=== PATIENT | female | born 1935 | race Caucasian/White ===

== ENCOUNTER → 2020-12-13 12:53 | Outpatient (REF) | payer MEDICARE, SELFPAY ==
--- NOTE | 2020-12-13 13:00 | CA_ITS ---
Transthoracic Echocardiogram Patient (Last, First, Middle): Soledad Padilla, Gender: Female Date of : 1935 Age: 85 Procedure Date: 12/13/2020 Procedure Type: Transthoracic Echocardiogram Location: OP Height: 154.94 cm Weight: 56.7 kg BSA: 1.55 m2 Heart Rate: bpm Manager Corporate Communications: SHIRA Referring MD: Chepe Rust MD Broadcast Supervisor: Chepe Rust MD Symptoms: S/P AVR Study Quality: Fair ECG Rhythm: Atrial Fibrillation Conclusions: - 1. Normal LV systolic function 2. Mild left atrial enlargement 3. Possible mild stenosis of the bioprosthetic aortic valve 4. At least moderate mitral annular calcification with mild mitral regurgitation 5. Normal RV systolic pressure 6. No pericardial effusion Findings Left Ventricle Normal left ventricular size, thickness, and systolic function. The visually estimated ejection fraction is between 60-65%. Diastolic function is indeterminate on the basis of available data. There is mild septal asymmetric hypertrophy. Right Ventricle Normal right ventricular cavity size and systolic function. Atria The left atrium is mildly dilated. Interatrial shunt cannot be excluded. The right atrium is normal in size. Aortic Valve The prosthetic aortic valve appears to be functioning abnormally. The aortic valve was not well visualized. The peak aortic gradient is 28 mmHg.The mean gradient is 15 mmHg. The aortic valve area is 1.29 cm2. There is no aortic valve regurgitation. Increased gradient across the bioprosthetic aortic valve, suggestive of possible mild stenosis. the valve appears to be well seated without abnormal rocking motion Mitral Valve There is moderate anterior and severe posterior mitral leaflet thickening. There is moderate mitral annular calcification. There is mild mitral valve regurgitation. There is no mitral valve stenosis. Pulmonic Valve The pulmonic valve was not well visualized. Tricuspid Valve Likely normal tricuspid valve structure and function. There is mild tricuspid valve regurgitation. The right ventricular systolic pressure is normal. There is no evidence of pulmonary hypertension. Great Vessels All visible segments of the aorta are normal in size. The pulmonary artery was not well visualized. Venous The inferior vena cava was not well visualized. Pericardium/Pleural There is no evidence of pericardial effusion. Prior Study Comparison Changes noted compared to prior study dated: 07/06/2019. patient appears to be in atrial fibrillation on this study. Otherwise no significant changes. Measurements 2D Linear Measurements IVSd: 1.41 0.6-0.9/0.6-1.0 cm LVIDd: 3.85 3.9-5.3/4.2-5.9 cm LVIDd Index: 2.48 2.4-3.2/2.2-3.1 cm/m2 LVIDs: 2.79 2.0-3.6 cm LVPWd: 1.01 0.7-1.1 cm Ao Root: 2.20 2.1-3.5 cm LA Diam: 3.90 2.7-3.8/3.0-4.0 cm LAIDs Index: 2.52 1.5-2.3 cm/m2 LV Mass: 197.00 67-162/88-224 g LV Mass Index: 127.10 43-95/49-115 g/m2 LVOT Diam: 1.90 3.0+(-)1.3 cm 2D Systolic Function EF 4C: 65.40 >55% EF 2C: 41.40 >55% EF BiP: 54.90 >55% Mitral Valve MV Pk E: 1.27 MV Decel Time: 126.00 E'Lateral: 7.94 E'Medial: 5.33 E/E' Med: 23.80 E/E' Lat: 16.00 PHT: 37.00 MVA PHT: 5.95 Decel Sumner: 10.11 Aortic Valve AoV Pk Maverick: 2.64 AoV Mn Maverick: 1.83 AoV VTI: 0.55 AoV Pk Grad: 28.00 Aov Mn Grad: 15.00 RANDEE Cont.VTI: 1.29 LVOT LVOT Pk Maverick: 1.17 LVOT Mn Maverick: 0.78 LVOT VTI: 0.25 LVOT Pk Grad: 5.00 LVOT Mn Grad: 3.00 LVOT Diam: 1.90 LVOT Area: 2.84 Diastolic Function MV Pk E: 1.27 E'Medial: 5.33 E/E' Med: 23.80 E' Laterial: 7.94 E/E' Lat: 16.00 Tricuspid Valve TR Pk Maverick: 2.90 TR Pk Grad: 34.00 RA Press: 3.00 RVSP: 37.00 Great Vessels Aorta Ao Root-2D: 2.20 2.0-3.7 cm Ao Asc: 2.40 2.1-3.4 cm Updated in Other Vendor System with Status of Final Chepe Rust MD electronically signed on 12/13/2020 4:59:53 PM with status of Final
== END ==
LOC: HO.CARD 12:53
PROVIDERS: Visit Provider Internal Medicine Cardiovascular Disease
DX: I10 Essential (primary) hypertension (principal); Z95.2 Presence of prosthetic heart valve
CPT/HCPCS: 93306

== ENCOUNTER → 2020-12-21 14:56 | Outpatient (BNVA) | payer MEDICARE, SELFPAY | PROVIDERS: PCP Internal Medicine; Visit Provider Nurse Practitioner Family | DX: I35.0 Nonrheumatic aortic (valve) stenosis (principal); I48.92 Unspecified atrial flutter; I34.0 Nonrheumatic mitral (valve) insufficiency; I10 Essential (primary) hypertension; E78.5 Hyperlipidemia, unspecified; Z95.2 Presence of prosthetic heart valve | CPT/HCPCS: 93005; 99212 ==

== ENCOUNTER → 2021-01-03 14:54 | Outpatient (REF) | payer MEDICARE, SELFPAY ==
--- NOTE | 2021-01-04 10:30 | ECG_ITS ---
Hook-up date: 2021-01-03 15:14:00 Duration: 39:19:00 Test Indications: AFLUTTER Medications: 43608 QRS complexes 2208 Ventricular ectopics which represent 2 % of total QRS comp. * Supraventricular ectopics which represent % of total QRS comp. * Paced QRS complexs which represent % of total QRS comp. VENTRICULAR ECTOPY 2094 Isolated 9 Bigeminal Cycles 54 Couplets 2 Runs 6 Beats in Runs 3 Beats LONGEST at 80 BPM at 00:41:15 2021-01-04 3 Beats FASTEST at 80 BPM at 00:41:15 2021-01-04 SUPRAVENTRICULAR ECTOPY * Isolated * Couplets * Runs * Beats in Runs * Beats LONGEST at * BPM at :: -- * Beats FASTEST at * BPM at :: -- HEART RATES 47 MIN at 05:11:48 2021-01-04 71 AVG 107 MAX at 12:19:26 2021-01-04 LONGEST RR 2.2080 secs at 20:59:54 2021-01-03 S-T LEVELS Channel 1 - 128 mm at 15:14:00 2021-01-03 - 128 mm at 15:14:00 2021-01-03 Channel 2 - 128 mm at 15:14:00 2021-01-03 - 128 mm at 15:14:00 2021-01-03 Channel 3 - 128 mm at 03:43:31 -- - 128 mm at 03:43:31 Basic rhythm Atrial fibrillation Good rate control in AF Frequent Premature ventricular complexes Patient did not report any symptoms in the diary Referred By: Sandra Maddox Overread By: AMANDA SPRING MD
== END ==
LOC: HO.CARD 14:54
PROVIDERS: PCP Internal Medicine; Visit Provider Nurse Practitioner Family
DX: I48.92 Unspecified atrial flutter (principal)
CPT/HCPCS: 93226

== ENCOUNTER → 2021-01-23 14:38 | Outpatient (BNVA) | payer MEDICARE, SELFPAY | PROVIDERS: PCP Internal Medicine; Referring Provider Internal Medicine; Visit Provider Internal Medicine Cardiovascular Disease | DX: I48.92 Unspecified atrial flutter (principal); Z95.2 Presence of prosthetic heart valve | CPT/HCPCS: 99212 ==

== ENCOUNTER 2021-02-20 10:57 | Outpatient (REF) | payer MEDICARE, SELFPAY ==
[2021-02-20 11:33] LABS: Estimated Average Glucose 126 mg/dL
[2021-02-20 13:00] LABS: Alanine Aminotransferase 29 U/L (0-31); Albumin Level 3.8 g/dL (3.5-5.0); Alkaline Phosphatase 96 U/L (39-117); Aspartate Amino Transferase 25 U/L (5-31); Bilirubin Direct 0.3 mg/dL (0.0-0.5); Bilirubin Total 1.1 mg/dL (0.0-1.0); Cholesterol 201 mg/dL; Glucose Fasting 112 mg/dL (60-99); HDL Cholesterol 53 mg/dL; LDL Cholesterol Calculated 133 mg/dl; Total Protein 6.2 g/dL (6.5-8.0); Triglycerides 78 mg/dL
[2021-02-20 13:29] LABS: Reflex LDLD? No
== END 2021-02-20 10:58 | disposition home or self-care (01) ==
LOC: HO.LNP 10:57
PROVIDERS: Visit Provider Internal Medicine
DX: E78.00 Pure hypercholesterolemia, unspecified (principal); R73.03 Prediabetes
CPT/HCPCS: 80061; 80076; 82947; 83036

== ENCOUNTER 2021-04-20 18:55 | Emergency (ER) | payer MEDICARE, SELFPAY ==
[2021-04-20 19:06] VITALS: BP 167/74; BP 185/79; PULSE 92; PULSE 99; RESP 18; TEMP 36.8; O2SAT 94; O2SAT 96; BMI 35.2
--- NOTE | 2021-04-20 19:20 | ED.FALL ---
HPI - Fall General Chief Complaint: Fall Stated Complaint: fall Time Seen by Provider: 04/20/21 19:12 Source: patient and EMS Mode of arrival: EMS Limitations: no limitations History of Present Illness MD complaint: fall Related Data Home Medications Medication Instructions Recorded Confirmed atorvastatin 40 mg tablet 40 mg PO DAILY 12/21/20 metoprolol tartrate 50 mg tablet 50 mg PO BID 12/21/20 Previous Rx's Medication Instructions Recorded apixaban 2.5 mg tablet (Eliquis) 2.5 mg PO BID #180 tab 01/05/21 Allergies Allergy/AdvReac Type Severity Reaction Status Date / Time acetaminophen Allergy Unknown itching Verified 05/11/20 00:00 [Tylenol-Codeine #3] amlodipine [Norvasc] Allergy Unknown leg Verified 05/11/20 00:00 swelling codeine [Tylenol-Codeine #3] Allergy Unknown itching Verified 05/11/20 00:00 morphine Allergy Unknown hallucinati Verified 05/11/20 00:00 on oxycodone [OXYCODONE] Allergy Unknown AGITATION Unverified 06/01/20 14:41 scallops [SCALLOPS] AdvReac Intermediate NAUSEA & Unverified 06/01/20 14:41 VOMITING PMFSH Past Medical History Attestation statement: The following information was validated with the patient. Medical History Aortic stenosis HLD (hyperlipidemia) HTN (hypertension) Mitral regurgitation Surgical History Hx of aortic valve replacement Hx of cholecystectomy Family History Family History Father No problems noted. Mother CVD (cardiovascular disease) Social History Social History (Updated 04/20/21 @ 19:21 by Abigail Miles DO) Patient Tobacco Use Status: Never used Tobacco Advance Directives: No Advance Directives Information Provided: No Physical Exam Vital Signs: Vital Signs: Last Vital Signs Temp 98.2 F 04/20/21 19:06 Pulse 99 04/20/21 19:06 Resp 18 04/20/21 19:06 BP 185/79 H 04/20/21 19:06 Pulse Ox 94 04/20/21 19:06 Body Mass Index 35.2 Discharge Plan Discharge Prescriptions: No Action Eliquis 2.5 mg tablet 2.5 mg PO BID Qty: 180 RF: 3 metoprolol tartrate 50 mg tablet 50 mg PO BID RF: 0 atorvastatin 40 mg tablet 40 mg PO DAILY RF: 0
--- NOTE | 2021-04-20 19:43 | ED_ITS ---
HPI - Wound/Laceration General Chief Complaint: Fall Stated Complaint: fall Time Seen by Provider: 04/20/21 19:12 Source: patient Mode of arrival: ambulatory Limitations: no limitations History of Present Illness HPI narrative: 86-year-old female presents via EMS with large laceration to the right knee after mechanical fall. Patient was ambulating with her walker and tripped, landed on her right knee. She did not hit her head or lose consciousness, does not report any prodromal events. Patient is on Eliquis and has some significant bleeding at this time. She did not report any other symptoms at this time. Onset (ago): hour(s) (Within the hour of arrival) Extremity Location: right: knee Place: home Patient tetanus UTD: Yes Context: accidental Associated symptoms: pain Related Data Home Medications Medication Instructions Recorded Confirmed atorvastatin 40 mg tablet 40 mg PO DAILY 12/21/20 metoprolol tartrate 50 mg tablet 50 mg PO BID 12/21/20 Previous Rx's Medication Instructions Recorded apixaban 2.5 mg tablet (Eliquis) 2.5 mg PO BID #180 tab 01/05/21 Allergies Allergy/AdvReac Type Severity Reaction Status Date / Time acetaminophen Allergy Unknown itching Verified 05/11/20 00:00 [Tylenol-Codeine #3] amlodipine [Norvasc] Allergy Unknown leg Verified 05/11/20 00:00 swelling codeine [Tylenol-Codeine #3] Allergy Unknown itching Verified 05/11/20 00:00 morphine Allergy Unknown hallucinati Verified 05/11/20 00:00 on oxycodone [OXYCODONE] Allergy Unknown AGITATION Unverified 06/01/20 14:41 scallops [SCALLOPS] AdvReac Intermediate NAUSEA & Unverified 06/01/20 14:41 VOMITING Review of Systems Review of Systems: Constitutional: No Fever, No Chills ENT/Mouth: No Ear Pain, No Hoarseness, No sore throat Eyes: No Eye Pain, No Swelling, No Redness, No Foreign Body Cardiovascular: No Chest Pain, No SOB Respiratory: No Cough, No Dyspnea Gastrointestinal: No Nausea, No Vomiting, No Diarrhea, No abdominal Pain Genitourinary: No Dysuria, No Hematuria Musculoskeletal: positive right knee pain, No Myalgias, No Joint Swelling Skin: Positive right knee laceration No rash Neuro: No Weakness, No Numbness, No Paresthesias, No Loss of Consciousness, No Dizziness, No Headache Psych: No Anxiety/Panic, No Depression Heme/Lymph: no easy bruising, no Lymphadenopathy Endocrine: No Polyuria, No Polydipsia Yes all other systems are reviewed and are negative [facility] Past Medical History Attestation statement: The following information was validated with the patient. Source: old records reviewed Medical History Aortic stenosis HLD (hyperlipidemia) HTN (hypertension) Mitral regurgitation Surgical History Hx of aortic valve replacement Hx of cholecystectomy Family History Family History Father No problems noted. Mother CVD (cardiovascular disease) Social History Social History Patient Tobacco Use Status: Never used Tobacco Advance Directives: No Advance Directives Information Provided: No Physical Exam Vital Signs: Vital Signs: Last Vital Signs Temp 98.2 F 04/20/21 19:06 Pulse 99 04/20/21 19:06 Resp 18 04/20/21 19:06 BP 185/79 H 04/20/21 19:06 Pulse Ox 94 04/20/21 19:06 Body Mass Index 35.2 Appearance: Alert. Oriented X3. No acute distress. Eyes: Pupils equal, round and reactive to light. ENT: Pharynx normal. Neck: Normal inspection. Neck supple. CVS: Normal heart rate and rhythm. Pulses normal. Respiratory: No respiratory distress. Breath sounds normal. Abdomen: Soft and nontender. Skin: 10 cm irregular laceration to the right knee, bruising noted to the right lower extremity. Extremities: No lower extremity edema. Moves all extremities against resistance. Neuro: No motor deficit. No sensory deficit. Cranial nerves 2-12 intact. Course Course Course Narrative: 86-year-old female presents with right knee laceration after mechanical fall. No prodromal events. Patient was evaluated by Dr. Miles and was referred to this CLOSING MACHINE OPERATOR for laceration repair. Prepped and draped in sterile fashion. Irrigated with copious amounts of normal saline. Betadine cleanse. Approximately 60 mL of blood loss. Patient tolerated procedure well. Brisk capillary refill and equal pedal pulses. Approximately 30 minutes status post laceration repair, pressure dressing remains in place, patient continues to maintain brisk capillary refill in equal pedal pulses. Plan is for patient to keep pressure dressing on for the next 48 hours, to return in 3 days for wound evaluation. Patient verbalized understanding of and agrees to plan of care discharge home. MDM - Wound/Laceration Differential Diagnosis Differential diagnosis: Likely laceration Medical Records Attestation: I reviewed the patient's medical records. Procedures Laceration Laceration 1: Site: lower extremity Side (If applicable): right Size (cm): 15 Description: irregular Depth: simple, single layer Local Anesthetic: lidocaine 2% and with epi Amount of anesthesia used (mL): 20 Pre-repair: wound explored, irrigated extensively and deep structures intact Skin layer closed with: nylon Size (cm): 5-0 Number of sutures: 32 Technique: simple, interrupted Discharge Plan Discharge Clinical Impression: Laceration Patient Disposition: Home, Self-Care Instructions: Care For Your Stitches (ED), Laceration (ED) Additional Instructions: You were evaluated for a large laceration to the right knee. We placed 32 sutures. Please keep the pressure dressing in place for the next 48 hours. Do not under any circumstances remove this dressing. This is a pressure dressing, you are bleeding under this large wound. You are on Eliquis which is a blood thinner. Please return for evaluation in 3 or 4 days. Sutures must be removed in approximately 10-14 days. If you notice any signs or symptoms indicating infection please return sooner. Thank you for choosing this emergency department for evaluation. Please follow-up with primary care physician as needed. Return to the emergency department for any new, concerning, or worsening symptoms. Prescriptions: No Action Eliquis 2.5 mg tablet 2.5 mg PO BID Qty: 180 RF: 3 metoprolol tartrate 50 mg tablet 50 mg PO BID RF: 0 atorvastatin 40 mg tablet 40 mg PO DAILY RF: 0 Interventions: ED Discharge Assessment Last Done: 04/20/21 21:34 Discharge Date/Time: 04/20/21 21:38
[2021-04-20] MEDS: Lidocaine HCl 2% PF/Epi 1:200 20 ML VIAL INFILTRATI (19:52)
--- NOTE | 2021-04-20 20:59 | PC.NURSE ---
PT LAC TO RIGHT KNEE CLEANED AND FLUSHED PER MOISES HARLEY. [address] AND PRESSURE DRESSING APPLIED.
--- NOTE | 2021-04-20 21:32 | PC.NURSE ---
PT GRAND DAUGHTER WILL BE TAKING CARE OF HER DRESSING CHANGES IN THE [facility].
== END 2021-04-20 21:38 | disposition home or self-care (01) ==
PROVIDERS: Emergency Provider Emergency Medicine; PCP Internal Medicine
DX: S81.011A Laceration without foreign body, right knee, initial encounter (principal); W01.0XXA Fall on same level from slipping, tripping and stumbling without subsequent striking against object, initial encounter; I10 Essential (primary) hypertension; E78.5 Hyperlipidemia, unspecified; Y93.9 Activity, unspecified; Y92.9 Unspecified place or not applicable; Y99.9 Unspecified external cause status; Z79.01 Long term (current) use of anticoagulants; Z95.2 Presence of prosthetic heart valve
CPT/HCPCS: 12035; 99283; 99284

== ENCOUNTER → 2021-05-08 13:12 | Outpatient (BNVA) | payer MEDICARE, SELFPAY | PROVIDERS: PCP Internal Medicine; Referring Provider Internal Medicine; Visit Provider Surgery | DX: S81.011A Laceration without foreign body, right knee, initial encounter (principal) | CPT/HCPCS: 99202 ==

== ENCOUNTER → 2021-07-31 13:38 | Outpatient (BNVA) | payer MEDICARE, SELFPAY | PROVIDERS: PCP Internal Medicine; Referring Provider Internal Medicine; Visit Provider Internal Medicine Cardiovascular Disease | DX: G45.9 Transient cerebral ischemic attack, unspecified (principal); I48.92 Unspecified atrial flutter; I08.0 Rheumatic disorders of both mitral and aortic valves; I10 Essential (primary) hypertension; E78.5 Hyperlipidemia, unspecified; R60.0 Localized edema; Z95.2 Presence of prosthetic heart valve; Z90.49 Acquired absence of other specified parts of digestive tract; Z88.8 Allergy status to other drugs, medicaments and biological substances; Z88.6 Allergy status to analgesic agent; Z91.013 Allergy to seafood; Z79.899 Other long term (current) drug therapy | CPT/HCPCS: 99212 ==

== ENCOUNTER 2021-08-05 09:59 | Emergency (ER) | payer MEDICARE, SELFPAY ==
--- NOTE | ~2021-08-05 | CT_ITS ---
EXAMINATION: HEAD CT WITHOUT CONTRAST CERVICAL SPINE CT WITHOUT CONTRAST CLINICAL INFORMATION: Fall, on eliquis COMPARISON: CT head 06/18/2018 TECHNIQUE: Contiguous axial imaging of the head was performed without the administration of IV contrast. Axial multidetector volumetric images were also performed through the cervical spine without contrast. Multiplanar reconstructed images in coronal and sagittal orientations were submitted. DOSE: 868 mGy-cm FINDINGS: HEAD: There is no evidence of acute intracranial hemorrhage or edematous territorial infarction. No abnormal mass-effect or midline shift. No extra-axial fluid collections. Sanchez to white matter differentiation is well preserved. Cerebral volume loss with sulcal and ventricular prominence. Moderate to severe deep white matter hypodensities more commonly seen with chronic microangiopathic ischemic changes. No acute fracture The sinuses and mastoid air cells are clear. CERVICAL SPINE: The craniocervical and atlantoaxial articulations are maintained. Mild anterolisthesis of C4 on C5. No acute fracture is seen. Cervical spondylosis. This includes severe C5-C6, C6-C7 disc degeneration. Multilevel facet degeneration. No significant paravertebral soft tissue swelling. No adenopathy. Mild biapical pleural parenchymal scarring. CT/CT cervical spine wo con IMPRESSION: 1. No CT evidence of acute intracranial hemorrhage or territorial infarction. Chronic changes as described above. 2. No CT evidence of acute fracture in the cervical spine. 3. Cervical spondylosis, described above.
--- NOTE | ~2021-08-05 | CT_ITS ---
EXAMINATION: HEAD CT WITHOUT CONTRAST CERVICAL SPINE CT WITHOUT CONTRAST CLINICAL INFORMATION: Fall, on eliquis COMPARISON: CT head 06/18/2018 TECHNIQUE: Contiguous axial imaging of the head was performed without the administration of IV contrast. Axial multidetector volumetric images were also performed through the cervical spine without contrast. Multiplanar reconstructed images in coronal and sagittal orientations were submitted. DOSE: 868 mGy-cm FINDINGS: HEAD: There is no evidence of acute intracranial hemorrhage or edematous territorial infarction. No abnormal mass-effect or midline shift. No extra-axial fluid collections. Sanchez to white matter differentiation is well preserved. Cerebral volume loss with sulcal and ventricular prominence. Moderate to severe deep white matter hypodensities more commonly seen with chronic microangiopathic ischemic changes. No acute fracture The sinuses and mastoid air cells are clear. CERVICAL SPINE: The craniocervical and atlantoaxial articulations are maintained. Mild anterolisthesis of C4 on C5. No acute fracture is seen. Cervical spondylosis. This includes severe C5-C6, C6-C7 disc degeneration. Multilevel facet degeneration. No significant paravertebral soft tissue swelling. No adenopathy. Mild biapical pleural parenchymal scarring. CT/CT head/brain wo con IMPRESSION: 1. No CT evidence of acute intracranial hemorrhage or territorial infarction. Chronic changes as described above. 2. No CT evidence of acute fracture in the cervical spine. 3. Cervical spondylosis, described above.
[2021-08-05 10:13] VITALS: BP 166/64; PULSE 74; RESP 19; TEMP 36.6; O2SAT 98; BMI 28.7
--- NOTE | 2021-08-05 11:47 | ED.FALL ---
HPI - Fall General Chief Complaint: Fall Stated Complaint: fall - rt arm lac Time Seen by Provider: 08/05/21 11:15 Source: patient and family Mode of arrival: ambulatory Limitations: no limitations History of Present Illness HPI Narrative: 86-year-old female with history of aortic stenosis status post bovine aortic valve replacement on Eliquis, atrial flutter, HTN, HLD, multiple falls in the past who presents to the ER after she tripped and fell on a rocking chair in her [place] [address] and landed against a piece of furniture causing a significant skin tear to her right forearm. She states when the injury occurred she had a large amount of bleeding; direct pressure was applied with good effect. she did not hit her head or lose consciousness. She states she simply tripped over the chair, was not dizzy, lightheaded or having any chest pain prior to falling. She reports several falls in the past and required wound repair to her bilateral knees. She denies any headache or neck pain. She states her last tetanus shot was 6 years ago. MD complaint: fall Onset (ago): minute(s) Fall from: standing Fall witnessed: no Place fall occurred: home Loss of consciousness: none Prolonged down time: no Symptoms prior to fall: none Context: tripped/slipped Location of injury - extremities: right: elbow and forearm Severity: moderate Severity scale (1-10): 5 Quality: aching Associated symptoms (after fall): denies Related Data Home Medications Medication Instructions Recorded Confirmed metoprolol tartrate 50 mg tablet 50 mg PO BID 12/21/20 07/31/21 hydrochlorothiazide 12.5 mg capsule 12.5 mg PO DAILY 07/31/21 07/31/21 Previous Rx's Medication Instructions Recorded apixaban 2.5 mg tablet (Eliquis) 2.5 mg PO BID #180 tab 01/05/21 aspirin 81 mg tablet,delayed 81 mg PO DAILY #30 tab 07/31/21 release (Adult Aspirin Regimen) Allergies Allergy/AdvReac Type Severity Reaction Status Date / Time acetaminophen Allergy Unknown itching Verified 05/08/21 13:23 [Tylenol-Codeine #3] amlodipine [Norvasc] Allergy Unknown leg Verified 05/08/21 13:23 swelling codeine [Tylenol-Codeine #3] Allergy Unknown itching Verified 05/08/21 13:23 morphine Allergy Unknown hallucinati Verified 05/08/21 13:23 on oxycodone [OXYCODONE] Allergy Unknown AGITATION Unverified 05/08/21 13:23 scallops [SCALLOPS] AdvReac Intermediate NAUSEA & Unverified 05/08/21 13:23 VOMITING Review of Systems Review of Systems: Constitutional: No Fever, No Chills ENT/Mouth: No sore throat, No Rhinorrhea Eyes: No vision changes Cardiovascular: No Chest Pain, No SOB Respiratory: No Cough, No Sputum Gastrointestinal: No Nausea, No Vomiting, No Diarrhea, No abdominal Pain Musculoskeletal: No joint pain, No Myalgias Skin: + Skin Lesions, No rash Neuro: No Weakness, No Numbness, No Dizziness, No Headache Psych: No Anxiety/Panic, No Depression Heme/Lymph: + Bruising, No Lymphadenopathy Endocrine: No Polyuria, No Polydipsia PMFSH Past Medical History Medical History Aortic stenosis HLD (hyperlipidemia) HTN (hypertension) Mitral regurgitation Surgical History Hx of aortic valve replacement Hx of cholecystectomy Family History Family History Father No problems noted. Mother CVD (cardiovascular disease) Social History Social History Patient Tobacco Use Status: Never used Tobacco Advance Directives: No Physical Exam Vital Signs: Vital Signs: Last Vital Signs Temp 98 F 08/05/21 10:13 Pulse 74 08/05/21 10:13 Resp 19 08/05/21 10:13 BP 166/64 H 08/05/21 10:13 Pulse Ox 98 08/05/21 10:13 Body Mass Index 28.7 Appearance: Alert. Oriented X3. No acute distress. Eyes: Pupils equal, round and reactive to light. ENT: Pharynx normal. Neck: Normal inspection. Neck supple. no midline tenderness. Normal range of motion. CVS: Normal heart rate and rhythm. Pulses normal. Respiratory: No respiratory distress. Breath sounds normal. Abdomen: Soft and nontender. +BS x4 Skin: Skin warm and dry. Normal skin color. Normal skin turgor. No rashes. Extremities: Right forearm and elbow on the extensor surface with a large 8 cm skin tear without any active bleeding. There is an avulsion with missing skin centrally. Overlying the elbow there is a crescent shaped skin tear as well. She has normal range of motion of the elbow, no point tenderness. There is surrounding ecchymosis of the skin tears, and elbow. Compartments are soft and compressible. neurovascularly intact distally. Neuro: Oriented X 3. No motor deficit. No sensory deficit. Course Course Course Narrative: 86-year-old female with a history of aortic stenosis s/p bovine AVR, a flutter on Eliquis, HTN, HLD, multiple falls presents to the ER from home with a mechanical fall, and 2 skin tears to the right forearm and elbow. No active bleeding. Low clinical suspicion for an acute fracture given her full range of motion and non tenderness on exam. She has some ecchymosis to her forearm already forming due to being on anticoagulation. Her wounds were cleansed with normal saline and Steri-Strips were used to approximate the wound margins. The large 1 on the forearm required some resection of irregular avulsion skin. Tdap given. Will get CT of the head and neck given she is on anticoagulation. She has a nonfocal neuro exam with low suspicion for ICH. Reevaluation(s) Reevaluation #1: CT head and neck without traumatic injury. Wound care discussed with patient and son at the bedside. Stable for discharge home. Procedures Laceration Laceration 1: Site: upper extremity Side (If applicable): right Size (cm): 8 Description: irregular and clean Depth: simple, single layer Pre-repair: wound explored, irrigated extensively, deep structures intact and wound margins revised Skin layer closed with: other (steri strips) Laceration 2: Site: upper extremity Side (If applicable): right Size (cm): 4 Description: irregular and clean Depth: simple, single layer Pre-repair: wound explored, irrigated extensively and deep structures intact Skin layer closed with: other (steri strips) Critical Care Time Critical Care Time Critical Care Time: No Discharge Plan Discharge Clinical Impression: Skin tear of right upper extremity Patient Disposition: Home, Self-Care Instructions: Skin Tear (ED) Additional Instructions: The CT scan of your head was normal. Steri-Strips were used to reapproximate the wound margins of the 2 skin tears on your right arm. These will fall off on their own. Do not get wet for 24 hours, after that you can gently wash with soap and water then pat dry. Recommend bacitracin 1-2 times per day keep clean and covered. Allow to open to air for a few hours per day. Monitor for signs of infection including increased redness, swelling, drainage of pus or worsening pain. Follow up with your doctor this week. If you develop new or worsening symptoms call 911 or come back to the ER for further evaluation. Prescriptions: No Action Eliquis 2.5 mg tablet 2.5 mg PO BID Qty: 180 RF: 3 metoprolol tartrate 50 mg tablet 50 mg PO BID RF: 0 hydrochlorothiazide 12.5 mg capsule 12.5 mg PO DAILY RF: 0 aspirin [Adult Aspirin Regimen] 81 mg tablet,delayed release (DR/EC) 81 mg PO DAILY Qty: 30 RF: 11 Referrals: Gray Spears MD [Primary Care Provider] - 5 days ( Follow-up mechanical fall and skin tears)
[2021-08-05] MEDS: Acetaminophen 325 MG TABLET 650 MG PO (11:54)
[2021-08-05] MEDS: Diphth,Pertus(ACell),Tet Adult 0.5 ML SYRINGE IM (11:55)
== END 2021-08-05 13:26 | disposition home or self-care (01) ==
PROVIDERS: Emergency Provider Emergency Medicine Emergency Medical Services; PCP Internal Medicine
DX: S41.111A Laceration without foreign body of right upper arm, initial encounter (principal); S50.811A Abrasion of right forearm, initial encounter; M79.631 Pain in right forearm; M54.2 Cervicalgia; G44.309 Post-traumatic headache, unspecified, not intractable; I10 Essential (primary) hypertension; Y29.XXXA Contact with blunt object, undetermined intent, initial encounter; Y93.9 Activity, unspecified; Y92.9 Unspecified place or not applicable; Y99.9 Unspecified external cause status; Z79.899 Other long term (current) drug therapy; Z79.01 Long term (current) use of anticoagulants
CPT/HCPCS: 12004; 70450; 72125; 90471; 90715; 99283; 99284

== ENCOUNTER 2021-08-07 15:40 | Outpatient (REF) | payer MEDICARE, SELFPAY ==
[2021-08-07 15:50] LABS: Appearance Urine CLEAR; Color Urine YELLOW; Glucose Urine UA NEG (NEG); Leukocyte Esterase Urine NEG (NEG); Nitrite Urine NEG (NEG); Urine Blood NEG (NEG); Urine Ketones NEG (NEG); Urine Protein NEG (NEG-TRACE)
== END 2021-08-07 15:41 | disposition home or self-care (01) ==
LOC: HO.LNP 15:40
PROVIDERS: Visit Provider Internal Medicine
DX: N39.0 Urinary tract infection, site not specified (principal)
CPT/HCPCS: 81003; 87086

== ENCOUNTER 2021-08-09 18:13 | Emergency (ER) | payer MEDICARE, SELFPAY ==
[2021-08-09 18:16] VITALS: BP 158/59; PULSE 73; RESP 18; TEMP 36.4; O2SAT 100; BMI 24.5
--- NOTE | 2021-08-09 18:50 | ED.WOUNDLAC ---
HPI - Wound/Laceration General Chief Complaint: Wound/Laceration Stated Complaint: lac Time Seen by Provider: 08/09/21 18:49 Source: patient Mode of arrival: ambulatory Limitations: no limitations History of Present Illness HPI narrative: 86-year-old female with a history of aortic stenosis status post aortic bovine valve repair on Eliquis, HTN, HLD, atrial flutter who presents to the ER with skin tear to her left anterior guzman. She was leaving her family's Thanksgiving dinner in a wheelchair being wheeled down the path outside with a stick got caught in the wheel of her wheelchair and came up and cut her anterior left guzman. She was wearing compresses in her skin was exposed, there was immediate bleeding after the wound was sustained. Patient's granddaughter is an EMT and was able to Steri-Strips the wound closed with adequate control of bleeding. Of note patient was recently seen here less than a week ago for skin tear to the right arm after she fell. She also has history of multiple falls requiring complex wound repair and suturing to her bilateral knees. Onset (ago): hour(s) (1.5) Extremity Location: left: lower leg Body four view annotation: 1. Anterior skin tear 2. Anterior skin tear Place: home Patient tetanus UTD: Yes Context: accidental Associated symptoms: pain Treatments prior to arrival: bandage and other (Steri-Strips) Related Data Home Medications Medication Instructions Recorded Confirmed metoprolol tartrate 50 mg tablet 50 mg PO BID 12/21/20 07/31/21 hydrochlorothiazide 12.5 mg capsule 12.5 mg PO DAILY 07/31/21 07/31/21 Previous Rx's Medication Instructions Recorded apixaban 2.5 mg tablet (Eliquis) 2.5 mg PO BID #180 tab 01/05/21 aspirin 81 mg tablet,delayed 81 mg PO DAILY #30 tab 07/31/21 release (Adult Aspirin Regimen) Allergies Allergy/AdvReac Type Severity Reaction Status Date / Time amlodipine [Norvasc] Allergy Unknown leg Verified 08/09/21 18:16 swelling codeine [Tylenol-Codeine #3] Allergy Unknown itching Verified 08/09/21 18:16 morphine Allergy Unknown hallucinati Unverified 08/09/21 18:16 on oxycodone [OXYCODONE] Allergy Unknown AGITATION Verified 08/09/21 18:16 scallops [SCALLOPS] AdvReac Intermediate NAUSEA & Verified 08/09/21 18:16 VOMITING Review of Systems Review of Systems: Constitutional: No Fever, No Chills Cardiovascular: No Chest Pain, No SOB Gastrointestinal: No Nausea, No Vomiting, No Diarrhea, No abdominal Pain Musculoskeletal: No joint pain, No Myalgias Skin: + Skin Lesions, No rash Neuro: No Weakness, No Numbness, No Dizziness, No Headache Psych: + Anxiety/Panic, No Depression Heme/Lymph: + Bruising, No Lymphadenopathy PMFSH Past Medical History Medical History (Updated 08/09/21 @ 19:49 by ANA Yu) Aortic stenosis HLD (hyperlipidemia) HTN (hypertension) Melanoma Mitral regurgitation Surgical History Hx of aortic valve replacement Hx of cholecystectomy Family History Family History Father No problems noted. Mother CVD (cardiovascular disease) Social History Social History Patient Tobacco Use Status: Never used Tobacco Advance Directives: No Advance Directives Information Provided: Yes Physical Exam Vital Signs: Vital Signs: Last Vital Signs Temp 97.6 F 08/09/21 18:16 Pulse 73 08/09/21 18:16 Resp 18 08/09/21 18:16 BP 158/59 H 08/09/21 18:16 Pulse Ox 100 08/09/21 18:16 Body Mass Index 24.5 Appearance: Alert. Oriented X3. No acute distress. HEENT: normal inspection CVS: Normal heart rate and rhythm. Pulses normal. Respiratory: No respiratory distress. Skin: Skin warm and dry. Normal skin color. Normal skin turgor. No rashes. Extremities: Right upper extremity with Steri-Strips in place from prior skin tears, wound is healing appropriately. Some dried blood is present beneath the Steri-Strips and surrounding ecchymosis is present as well. She has full range of motion of the elbow. No active bleeding. Her right lower anterior guzman has a v-shaped 3 cm skin tear, no active bleeding, mild ecchymosis surrounding. Her left anterior guzman with a complex L shape, irregular skin tear with active oozing from the superior portion. Many Steri-Strips are in place with adequate approximation of the wound margins. Neurovascularly intact distally. Neuro: Oriented X 3. No motor deficit. No sensory deficit. Course Course Course Narrative: 86-year-old female on Eliquis presenting with a bleeding skin tear to her left guzman. She also has a small skin tear to the right guzman unknown etiology who was. Pressure dressing was applied to the left anterior guzman with adequate hemostasis. Additional Steri-Strips were used for wound closure. Patient tolerated procedure well. Patient and her daughter were counseled on wound care moving forward. They have nurse at the assisted living that is going to change the dressing tomorrow. Daughter is going to advocate for wound care follow-up next week. At this time she is stable for discharge home with wound care and close outpatient follow-up. Procedures Laceration Laceration 1: Side (If applicable): right Size (cm): 3 Description: linear (V-shaped) Depth: simple, single layer Pre-repair: wound explored, irrigated extensively and deep structures intact Skin layer closed with: other (Steri-Strips x3) Laceration 2: Site: lower extremity Side (If applicable): left Size (cm): 7 Description: irregular and clean Depth: simple, single layer Pre-repair: wound explored, irrigated extensively and deep structures intact Skin layer closed with: other (steri strips) Critical Care Time Critical Care Time Critical Care Time: No Discharge Plan Discharge Clinical Impression: Skin tear of left lower leg without complication Qualifiers: Encounter type: initial encounter Qualified Code(s): S81.812A - Laceration without foreign body, left lower leg, initial encounter Patient Disposition: Home, Self-Care Instructions: Skin Tear (ED) Additional Instructions: Steri-Strips were used to help close your wound today. Keep the dressing that was applied to your wound in place until tomorrow. Steri-Strips will fall off on their own, once they start to peel away just trim them, do not peel them off. Keep the wound clean and covered, recommend bulky dressings to help protect them. Follow-up with your doctor early next week. If you notice any signs or symptoms of infection including increased pain, redness, swelling, drainage of pus call your doctor or come back to the emergency room for further evaluation. Prescriptions: No Action Eliquis 2.5 mg tablet 2.5 mg PO BID Qty: 180 RF: 3 metoprolol tartrate 50 mg tablet 50 mg PO BID RF: 0 hydrochlorothiazide 12.5 mg capsule 12.5 mg PO DAILY RF: 0 aspirin [Adult Aspirin Regimen] 81 mg tablet,delayed release (DR/EC) 81 mg PO DAILY Qty: 30 RF: 11
--- NOTE | 2021-08-09 19:37 | PC.NURSE ---
PT IS NOT ALLERGIC TO TYLENOL TAKES IT AT HOME EVERY DAY ONLY TYLENOL WITH CODEINE.
[2021-08-09] MEDS: Acetaminophen 325 MG TABLET 650 MG PO (19:49)
== END 2021-08-09 20:50 | disposition home or self-care (01) ==
PROVIDERS: Emergency Provider Student in an Organized Health Care Education/Training Program; PCP Internal Medicine
DX: S81.812A Laceration without foreign body, left lower leg, initial encounter (principal); M79.605 Pain in left leg; M79.604 Pain in right leg; W26.9XXA Contact with unspecified sharp object(s), initial encounter; Y93.9 Activity, unspecified; Y92.9 Unspecified place or not applicable; Y99.9 Unspecified external cause status; Z79.899 Other long term (current) drug therapy
CPT/HCPCS: 12004; 99283; 99284

== ENCOUNTER 2021-10-26 12:54 | Outpatient (RCR) | payer MEDICARE, SELFPAY | END 2021-10-29 15:34 | disposition home or self-care (01) | LOC: HO.WCC 12:54 | PROVIDERS: PCP Internal Medicine; Visit Provider Physician Assistant | DX: Z09 Encounter for follow-up examination after completed treatment for conditions other than malignant neoplasm (principal); I87.301 Chronic venous hypertension (idiopathic) without complications of right lower extremity; Z87.891 Personal history of nicotine dependence; Z95.2 Presence of prosthetic heart valve; Z86.73 Personal history of transient ischemic attack (TIA), and cerebral infarction without residual deficits; Z87.2 Personal history of diseases of the skin and subcutaneous tissue | CPT/HCPCS: 99213 ==

== ENCOUNTER 2022-03-31 18:27 | Inpatient (IN) | payer MEDICARE, SELFPAY ==
--- NOTE | ~2022-03-31 | CT_ITS ---
EXAMINATION: CT ANGIOGRAM OF THE CHEST WITH AND WITHOUT CONTRAST (CT PULMONARY ANGIOGRAM FOR PE) CLINICAL INFORMATION: Fall, positive d-dimer. COMPARISON: CT chest 03/31/2022. TECHNIQUE: Prior to contrast administration, noncontrast localization images were obtained. Subsequently, multidetector volumetric imaging was performed from the thoracic inlet to below the diaphragms following the administration of 80 mL Omnipaque 350 intravenous contrast. No contrast reaction reported Sagittal, coronal, and MIP oblique sagittal reformatted images were obtained on the CT workstation, uploaded to PACS, and reviewed. This CT examination was performed using dose optimization techniques as appropriate, variously including the following: *Automated exposure control *Adjustment of mA and/or kV according to patient size (this includes techniques or standardized protocols for targeted exams where dose is matched to indication/reason for exam; i.e. extremities or head) *Use of iterative reconstruction technique Total exam dose-length product 208 mGy-cm FINDINGS: QUALITY OF STUDY/CONTRAST BOLUS: Satisfactory. PULMONARY ARTERIES: No central or segmental pulmonary emboli. THORACIC AORTA: No aneurysm or dissection. Extensive atherosclerotic disease. LUNG: No focal consolidation or mass. Redemonstration of background of mild emphysematous changes and diffuse bronchial wall thickening. Subpleural thickening and peripheral reticulation in the lower lobes, stable. Scattered subcentimeter pulmonary nodules are again noted. For example, a 0.5 cm subpleural right middle lobe nodule (6:292), and a 0.4 cm subpleural right upper lobe nodule (6:150). Calcified granulomas are again noted. The central airways are patent. PLEURA: No pleural effusion or pneumothorax. MEDIASTINUM: Normal heart size. Coronary calcifications. Sternal wires. No pericardial effusion. No hilar or mediastinal lymphadenopathy. No evidence of septal bowing or right heart strain. Redemonstration of an approximately 1.5 cm exophytic nodule from the lower pole of the left thyroid. CHEST WALL/AXILLA: No axillary or internal mammary lymphadenopathy. OSSEOUS STRUCTURES: Unchanged compression deformity at T12 with similar degree of retropulsion into the spinal canal. UPPER ABDOMEN: Hiatal hernia. Partially imaged left parapelvic renal cysts. No reflux of contrast into the hepatic veins to suggest elevated right heart pressures. CT/CT angio chest PE protocol IMPRESSION: 1. No evidence of pulmonary embolism nor increased right-sided heart pressures. 2. Scattered subcentimeter pulmonary nodules are redemonstrated. Assuming patient has no history of malignancy, recommend follow-up per Fleischner Society recommendations. According to the UPDATED 2017 Fleischner Society recommendations, the advised followup imaging for solid nodules < 6 mm is: LOW RISK PATIENT: No routine follow up. HIGH RISK PATIENT: Optional CT at 12 months. 3. Again noted exophytic thyroid nodule, consider thyroid ultrasound for further evaluation. 4. Stable compression deformity at T12 with similar degree of retropulsion into the anterior spinal canal. 5. Again noted hiatal hernia. VTE: negative
--- NOTE | ~2022-03-31 | CT_ITS ---
EXAMINATION: CT CHEST, ABDOMEN AND PELVIS WITHOUT IV CONTRAST CLINICAL INFORMATION: Left upper quadrant pain. Fall left anterior chest wall pain COMPARISON: CT abdomen pelvis 03/28/2020 TECHNIQUE: Multidetector volumetric imaging was performed from the thoracic inlet through the pubic symphysis following the uneventful administration of: Oral contrast: No Intravenous contrast: None. Sagittal and coronal reformatted images were obtained on the technologist workstation. This CT examination was performed using dose optimization techniques as appropriate, variously including the following: *Automated exposure control *Adjustment of mA and/or kV according to patient size (this includes techniques or standardized protocols for targeted exams where dose is matched to indication/reason for exam; i.e. extremities or head) *Use of iterative reconstruction technique DLP [id number] FINDINGS: CHEST: LUNG: Mild bronchial wall thickening. No focal consolidation or mass. MEDIASTINUM: Sternal wires. Healed sternotomy. No hilar or mediastinal lymphadenopathy. There is a 1.8 cm nodule exophytic from the lower pole of the left lobe of the thyroid extending into the superior mediastinum. Borderline cardiomegaly. Aortic valve and coronary artery calcifications. PLEURA: No significant effusion. No pleural mass or thickening. CHEST WALL/AXILLA: No bone reconstructions provided. ABDOMEN/PELVIS: The lack of intravenous contrast limits evaluation of the solid visceral organs including the liver, spleen, pancreas, and kidneys. LIVER, GALLBLADDER, AND BILIARY TREE: Limited non-contrast evaluation is normal. No gross focal hepatic lesion. Normal liver size and contour. No gross biliary ductal dilation. Gallbladder not seen, likely surgically absent rather than collapsed. Prominence of the common bile duct, unchanged from prior. PANCREAS: Limited non-contrast evaluation is normal. No nathaly-pancreatic fluid. SPLEEN: Limited non-contrast evaluation is normal. ADRENAL GLANDS: Normal; no adrenal mass. KIDNEYS AND URETERS: Left renal parapelvic cysts. No hydronephrosis, calculi, or solid mass. GASTROINTESTINAL TRACT: Moderate hiatal hernia. Small bowel nondilated. Scattered colonic diverticulosis. No evidence of colitis or diverticulitis. ABDOMINAL WALL: No hernia seen. LYMPH NODES: No pathologically enlarged lymph nodes in the abdomen or pelvis. VASCULAR: Circumferential calcified atherosclerotic changes of the normal caliber abdominal aorta. BLADDER: Unremarkable. PELVIC VISCERA: Pessary in place. Calcified fundal leiomyoma. No adnexal mass. OSSEOUS STRUCTURES: Prior ORIF of the right hip. Healed right superior and inferior pubic ramus fractures. No acute fracture. New since the prior study 03/28/2020 there is superior endplate compression deformity of T12. CT/CT abdomen pelvis wo con IMPRESSION: There is superior endplate compression deformity of T12 with slight 2 mm retropulsion of the posterior wall into the ventral CSF space. The finding is new since the prior study 03/28/2020 but not necessarily acute. Recommend correlation with symptoms of back pain. Limited by lack of IV contrast, no evidence of solid visceral organ injury in the chest, abdomen, or pelvis.
--- NOTE | ~2022-03-31 | CT_ITS ---
EXAMINATION: CT OF THE HEAD AND CERVICAL SPINE WITHOUT CONTRAST CLINICAL INFORMATION: Fall. On Eliquis. COMPARISON: 08/05/2021 TECHNIQUE: Contiguous axial imaging was performed from the vertex to the thoracic inlet, through the head and cervical spine, without intravenous administration of contrast. Coronal and sagittal reformatted images through the cervical spine were obtained on the technologists workstation. Total exam dose-length product: 654 mGy-cm This CT examination was performed using dose optimization techniques as appropriate, variously including the following: *Automated exposure control *Adjustment of mA and/or kV according to patient size (this includes techniques or standardized protocols for targeted exams where dose is matched to indication/reason for exam; i.e. extremities or head) *Use of iterative reconstruction technique FINDINGS: Head: No acute intracranial hemorrhage. No extra-axial fluid collection. Sanchez-white matter differentiation is preserved without evidence of acute large vessel territory ischemia. Symmetric, concordant ventricles and sulci; no hydrocephalus. No mass effect or midline shift. Again seen is patchy periventricular and subcortical white matter hypodensity consistent with chronic microvascular white matter ischemic changes, similar in distribution to the prior study. Chronic lacunar infarcts again seen in the left basal ganglia and thalamus. The osseous structures and soft tissues are normal. No acute sinusitis. Cervical spine: Normal pre-vertebral soft tissues. No fracture seen. Subtle grade 1 anterolisthesis C4 on C5. Multilevel degenerative changes with degenerative disc disease most notable at C5-C6 and C6-C7. 1.7 cm nodule exophytic from the lower pole the left lobe of the thyroid again seen. Lung apices are clear. Partially imaged sternal wire. No cervical lymphadenopathy, mass, or fluid collection. CT/CT cervical spine wo con IMPRESSION: No acute intracranial pathology. Multilevel degenerative changes of the cervical spine but no acute osseous abnormality of the cervical spine. There is a 1.7 cm heterogeneous nodule exophytic from the lower pole of the left lobe of the thyroid. Consider thyroid ultrasound for further evaluation.
--- NOTE | 2022-03-31 18:33 | ECG_ITS ---
Test Reason : CHEST PAIN Blood Pressure : / mmHG Vent. Rate : 074 BPM Atrial Rate : 074 BPM P-R Int : 212 ms QRS Dur : 112 ms QT Int : 426 ms P-R-T Axes : 042 -32 068 degrees QTc Int : 472 ms Sinus rhythm with 1st degree A-V block Left axis deviation Minimal voltage criteria for LVH, may be normal variant ( Binu product ) Cannot rule out Anterior infarct , age undetermined Abnormal ECG When compared with ECG of 18-JUN-2018 13:32, DE interval has increased ST no longer depressed in Anterior leads Nonspecific T wave abnormality no longer evident in Anterior leads Nonspecific T wave abnormality now evident in Lateral leads Referred By: Natalia Glaser Electronically Signed By:Virgilio Jc
--- NOTE | 2022-03-31 18:41 | ED_ITS ---
HPI - Chest Pain General Chief Complaint: Fall Stated Complaint: cp Time Seen by Provider: 03/31/22 18:32 Source: patient and EMS Mode of arrival: EMS Limitations: no limitations History of Present Illness HPI narrative: A 7-year-old female past medical history significant for atrial flutter currently on Eliquis, aortic stenosis, mitral regurg, hyperlipidemia, hypertension presenting to the emergency department with complaints of chest pain that started at around 18:00 after she had dinner she tells me she went to stand and started experiencing substernal chest pain, nonradiating, described as sharp. She tells me at this time it has subsided for the most part but at times it hurts when she takes a deep breath. She also reports that earlier today she sustained a fall, she tells me she did not hit her head, she tells me that at the [facility] they wrapped her left wrist because she had a skin tear. Patient tells me that she did not sustain any injuries from the fall. She denies headache, vision changes, nausea, vomiting, abdominal pain, shortness of breath, leg swelling or leg pain. Patient alert and oriented x4 unable to give me a good history. Related Data Home Medications Medication Instructions Recorded Confirmed metoprolol tartrate 50 mg tablet 50 mg PO BID 12/21/20 03/31/22 hydrochlorothiazide 12.5 mg capsule 12.5 mg PO DAILY 07/31/21 07/31/21 apixaban 2.5 mg tablet (Eliquis) 1 tab PO BID 03/31/22 03/31/22 carbidopa 25 mg-levodopa 100 mg tab PO 03/31/22 tablet furosemide 20 mg tablet 1 tab PO DAILY 03/31/22 03/31/22 Previous Rx's Medication Instructions Recorded aspirin 81 mg tablet,delayed 81 mg PO DAILY #30 tabs 07/31/21 release (Adult Aspirin Regimen) apixaban 2.5 mg tablet (Eliquis) 2.5 mg PO BID #180 tabs 01/04/22 Allergies Allergy/AdvReac Type Severity Reaction Status Date / Time amlodipine [Norvasc] Allergy Unknown leg Verified 08/09/21 18:16 swelling codeine [Tylenol-Codeine #3] Allergy Unknown itching Verified 08/09/21 18:16 morphine Allergy Unknown hallucinati Unverified 08/09/21 18:16 on oxycodone [OXYCODONE] Allergy Unknown AGITATION Verified 08/09/21 18:16 scallops [SCALLOPS] AdvReac Intermediate NAUSEA & Verified 08/09/21 18:16 VOMITING Review of Systems Review of Systems: Constitutional : No Weight loss, No Fever, No Chills, No Fatigue, No Malaise ENT/Mouth : No sore throat, No Rhinorrhea Eyes: No Eye Pain, No Swelling, No Redness Cardiovascular : + Chest Pain, No SOB, No Dyspnea on Exertion, No Orthopnea, No Edema, No Palpitations Respiratory : No Cough, No Sputum, No Wheezing Gastrointestinal : No Nausea, No Vomiting, No Diarrhea, No Constipation, No abdominal Pain, No Hematochezia, No Melena Genitourinary : No Dysuria, No Urinary Frequency, No Hematuria, Musculoskeletal : No joint pain, No Myalgias, No Joint Swelling Skin : No Skin Lesions, No rash Neuro : No Weakness, No Numbness, No Dizziness, No Headache All other systems reviewed and are negative Yes all other systems are reviewed and are negative [facility] Past Medical History Attestation statement: The following information was validated with the patient. Source: old records reviewed and nursing notes reviewed Medical History Aortic stenosis HLD (hyperlipidemia) HTN (hypertension) Melanoma Mitral regurgitation Surgical History Hx of aortic valve replacement Hx of cholecystectomy Family History Family History Father No problems noted. Mother CVD (cardiovascular disease) Social History Social History Alcohol intake: never Patient Tobacco Use Status: Never used Tobacco Use of substances other than those prescribed or required for medical reasons: No Advance Directives: No Advance Directives Information Provided: No Physical Exam Vital Signs: Vital Signs: Last Vital Signs Temp 98.6 F 03/31/22 21:50 Pulse 84 03/31/22 21:50 Resp 16 03/31/22 21:50 BP 166/57 H 03/31/22 21:50 Pulse Ox 98 03/31/22 21:50 O2 Del Method 03/31/22 21:50 BMI result Body Mass Index 24.5 Vital signs stable Appearance: Alert.? Oriented X3.? No acute distress.? Head: Normocephalic, atraumatic, no step-offs or deformities Eyes: Pupils equal, round and reactive to light.? ENT: Pharynx normal.? Neck: Normal inspection.? Neck supple.? CVS: Normal heart rate and rhythm.? Pulses normal.?+ pain w/ palpation of left anterior chest wall Respiratory: No respiratory distress.? Breath sounds normal.? Abdomen: Soft and + tenderness to the left upper quadrant.? Skin: Skin warm and dry.? Normal skin color.? Normal skin turgor.?+ dressing to l. wrist w/ ecchymosis Extremities: No lower extremity edema.? No calf ttp. 5/5 strength to bilateral upper and lower extremities Neuro: Oriented X 3.? No motor deficit.? No sensory deficit. CN 2-12 intact Course Reevaluation(s) Reevaluation #1: CBC with slight normocytic anemia. Chemistry with no acute electrolyte abnormalities requiring intervention. BNP elevated at 556. Initial troponin 40.2nd troponin 38.3, decreasing therefore not doubling delta, low suspicion for ACS. Patient is COVID positive. D-dimer was initially elevated however CTA of the chest negative for PE. UA positive for infection. CT of the cervical spine with no acute findings. Head CT is no acute findings. CT of the abdomen and pelvis with superior endplate compression deformity of T12 with slight 2 mm reach retropulsion of the posterior wall into the ventral CSF space. No acute findings in the chest. Orthostatics vital signs positive. Patient gently hydrated since her BNP is elevated. Time: 00:58 Reevaluation #2: Will be given ceftriaxone for OBGYN. Time: 01:35 MDM - Chest Pain MDM Narrative Medical decision making narrative: 184 87 yo f presents w/ chest pain and w/ a fall this am. On eliquis. PE with a dressing to the left wrist with overlying ecchymosis, 2+ radial pulses equal bilateral. Neuro nonfocal. Lungs clear. Regular rate and rhythm, likely aortic stenosis present and mitral regurg. Plan at this time is CT scans, laboratory studies. Since patient is anticoagulated and sustained a fall will rule out intracranial hemorrhage, internal bleeding, rib fractures. Unlikley PE. Will rule out ACS and orthostatic hypotension. Medical Records Data Attestation: I reviewed the patient's medical records. Lab Data Attestation: I reviewed the patient's lab results. Result diagrams: 03/31/22 20:27 03/31/22 20:27 Labs: Lab Results 03/31/22 03/31/22 03/31/22 Range/Units 20:27 20:27 20:27 WBC 6.9 (4.8-10.8) X10*3/uL RBC 3.36 L (4.20-5.50) X10*6/uL Hgb 9.8 L (12.0-16.0) g/dl Hct 30.1 L (37.0-47.0) % MCV 89.6 (80.0-98.0) fL MCH 29.2 (27.0-33.0) pg MCHC 32.6 (31.0-35.0) g/dl RDW 14.6 (11.0-16.0) % Plt Count 179 (160-400) X10*3/uL MPV 8.7 L (9.4-12.3) fL Immature Gran % (Auto) 0.4 (0.0-0.4) % Neut % (Auto) 69.5 (45-73) % Lymph % (Auto) 12.8 L (20-40) % [facility] % (Auto) 16.9 H (2-11) % Eos % (Auto) 0.3 (0-4) % Baso % (Auto) 0.1 (0-2) % Lymph # (Auto) 0.9 L (1.2-4.9) X10*3/uL [facility] # (Auto) 1.2 (0.1-1.2) X10*3/uL Eos # (Auto) 0.0 (0.0-0.4) X10*3/uL Baso # (Auto) 0.0 (0.0-0.2) X10*3/uL Abs Immat Gran (auto) 0.03 (0.00-0.03) X10*3/uL Absolute Neuts (auto) 4.8 (2.0-8.3) x10*3/uL Absolute Nucleated RBC 0.000 (0.0-0.012) X10*3/uL Nucleated RBC % (auto) 0.0 (0.0-0.2) /100WBC D-Dimer High Sensitivty NG/ML Sodium 138 (135-145) mmol/L Potassium 3.6 (3.3-5.1) mmol/L Chloride 103 (96-108) mmol/L Carbon Dioxide 27 (22-29) mmol/L Anion Gap 12 (12-20) BUN 30 H (9-16) mg/dL Creatinine 1.13 (0.5-1.4) mg/dL Estim Creat Clear Calc TNP Estimated GFR 46 Random Glucose 122 H (60-115) mg/dL Calcium 7.8 L (8.4-10.2) mg/dL Magnesium 2.0 (1.6-2.6) mg/dL Total Bilirubin 0.3 (0.0-1.0) mg/dL AST 18 (5-31) U/L ALT < 6 (0-31) U/L Alkaline Phosphatase 77 (39-117) U/L Troponin I High Sens (<3.5-17.0) ng/L B-Natriuretic Peptide 556 H (<100) pg/mL Total Protein 6.1 L (6.5-8.0) g/dL Albumin 3.6 (3.5-5.0) g/dL Urine Color Urine Appearance Urine pH (5.0-8.0) Ur Specific [place] (1.005-1.025) Urine Protein (NEG-TRACE) MG/DL Urine Glucose (UA) (NEG) MG/DL Urine Ketones (NEG) MG/DL Urine Blood (NEG) Urine Nitrite (NEG) Ur Leukocyte Esterase (NEG) Urine RBC (0) /HPF Urine WBC (0-4) /HPF Ur Squamous Epith Cells /LPF Urine Bacteria /LPF COVID-19 ([facility]) (Negative) COVID-19 Clin Com 03/31/22 03/31/22 03/31/22 Range/Units 20:27 20:27 20:29 WBC (4.8-10.8) X10*3/uL RBC (4.20-5.50) X10*6/uL Hgb (12.0-16.0) g/dl Hct (37.0-47.0) % MCV (80.0-98.0) fL MCH (27.0-33.0) pg MCHC (31.0-35.0) g/dl RDW (11.0-16.0) % Plt Count (160-400) X10*3/uL MPV (9.4-12.3) fL Immature Gran % (Auto) (0.0-0.4) % Neut % (Auto) (45-73) % Lymph % (Auto) (20-40) % [facility] % (Auto) (2-11) % Eos % (Auto) (0-4) % Baso % (Auto) (0-2) % Lymph # (Auto) (1.2-4.9) X10*3/uL [facility] # (Auto) (0.1-1.2) X10*3/uL Eos # (Auto) (0.0-0.4) X10*3/uL Baso # (Auto) (0.0-0.2) X10*3/uL Abs Immat Gran (auto) (0.00-0.03) X10*3/uL Absolute Neuts (auto) (2.0-8.3) x10*3/uL Absolute Nucleated RBC (0.0-0.012) X10*3/uL Nucleated RBC % (auto) (0.0-0.2) /100WBC D-Dimer High Sensitivty 256 NG/ML Sodium (135-145) mmol/L Potassium (3.3-5.1) mmol/L Chloride (96-108) mmol/L Carbon Dioxide (22-29) mmol/L Anion Gap (12-20) BUN (9-16) mg/dL Creatinine (0.5-1.4) mg/dL Estim Creat Clear Calc Estimated GFR Random Glucose (60-115) mg/dL Calcium (8.4-10.2) mg/dL Magnesium (1.6-2.6) mg/dL Total Bilirubin (0.0-1.0) mg/dL AST (5-31) U/L ALT (0-31) U/L Alkaline Phosphatase (39-117) U/L Troponin I High Sens 40.7 H (<3.5-17.0) ng/L B-Natriuretic Peptide (<100) pg/mL Total Protein (6.5-8.0) g/dL Albumin (3.5-5.0) g/dL Urine Color Urine Appearance Urine pH (5.0-8.0) Ur Specific [place] (1.005-1.025) Urine Protein (NEG-TRACE) MG/DL Urine Glucose (UA) (NEG) MG/DL Urine Ketones (NEG) MG/DL Urine Blood (NEG) Urine Nitrite (NEG) Ur Leukocyte Esterase (NEG) Urine RBC (0) /HPF Urine WBC (0-4) /HPF Ur Squamous Epith Cells /LPF Urine Bacteria /LPF COVID-19 ([facility]) Positive A (Negative) COVID-19 Clin Com See Note 03/31/22 03/31/22 Range/Units 22:10 23:33 WBC (4.8-10.8) X10*3/uL RBC (4.20-5.50) X10*6/uL Hgb (12.0-16.0) g/dl Hct (37.0-47.0) % MCV (80.0-98.0) fL MCH (27.0-33.0) pg MCHC (31.0-35.0) g/dl RDW (11.0-16.0) % Plt Count (160-400) X10*3/uL MPV (9.4-12.3) fL Immature Gran % (Auto) (0.0-0.4) % Neut % (Auto) (45-73) % Lymph % (Auto) (20-40) % [facility] % (Auto) (2-11) % Eos % (Auto) (0-4) % Baso % (Auto) (0-2) % Lymph # (Auto) (1.2-4.9) X10*3/uL [facility] # (Auto) (0.1-1.2) X10*3/uL Eos # (Auto) (0.0-0.4) X10*3/uL Baso # (Auto) (0.0-0.2) X10*3/uL Abs Immat Gran (auto) (0.00-0.03) X10*3/uL Absolute Neuts (auto) (2.0-8.3) x10*3/uL Absolute Nucleated RBC (0.0-0.012) X10*3/uL Nucleated RBC % (auto) (0.0-0.2) /100WBC D-Dimer High Sensitivty NG/ML Sodium (135-145) mmol/L Potassium (3.3-5.1) mmol/L Chloride (96-108) mmol/L Carbon Dioxide (22-29) mmol/L Anion Gap (12-20) BUN (9-16) mg/dL Creatinine (0.5-1.4) mg/dL Estim Creat Clear Calc Estimated GFR Random Glucose (60-115) mg/dL Calcium (8.4-10.2) mg/dL Magnesium (1.6-2.6) mg/dL Total Bilirubin (0.0-1.0) mg/dL AST (5-31) U/L ALT (0-31) U/L Alkaline Phosphatase (39-117) U/L Troponin I High Sens 38.3 H (<3.5-17.0) ng/L B-Natriuretic Peptide (<100) pg/mL Total Protein (6.5-8.0) g/dL Albumin (3.5-5.0) g/dL Urine Color YELLOW Urine Appearance CLEAR Urine pH 6.0 (5.0-8.0) Ur Specific [place] 1.010 (1.005-1.025) Urine Protein NEG (NEG-TRACE) MG/DL Urine Glucose (UA) NEG (NEG) MG/DL Urine Ketones NEG (NEG) MG/DL Urine Blood NEG (NEG) Urine Nitrite NEG (NEG) Ur Leukocyte Esterase TRACE H (NEG) Urine RBC 1-4 (0) /HPF Urine WBC 5-9 H (0-4) /HPF Ur Squamous Epith Cells 1+ /LPF Urine Bacteria 3+ /LPF COVID-19 ([facility]) (Negative) COVID-19 Clin Com Critical Care Time Critical Care Time Critical Care Time: No Discharge Plan Discharge Clinical Impression: Fall, Chest pain not due to acute coronary syndrome, Orthostatic dizziness, COVID-19, Acute UTI Patient Disposition: Admitted As Inpatient
[2022-03-31 18:58] VITALS: BP 150/79; PULSE 76
[2022-03-31 20:38] LABS: MANUAL DIFF FLAG NO
[2022-03-31 20:40] LABS: Basophils Percent Auto 0.1 % (0-2); Eosinophils Percent Auto 0.3 % (0-4); Hematocrit 30.1 % (37.0-47.0); Hemoglobin 9.8 g/dl (12.0-16.0); Imm Gran Abs Auto 0.03 X10*3/uL (0.00-0.03); Imm Gran Pct Auto 0.4 % (0.0-0.4); Lymphocytes Absolute Auto 0.9 X10*3/uL (1.2-4.9); Lymphocytes Percent Auto 12.8 % (20-40); Mean Corpuscular HGB Conc 32.6 g/dl (31.0-35.0); Mean Corpuscular Hemoglobin 29.2 pg (27.0-33.0); Mean Corpuscular Volume 89.6 fL (80.0-98.0); Mean Platelet Volume 8.7 fL (9.4-12.3); Monocytes Absolute Auto 1.2 X10*3/uL (0.1-1.2); Monocytes Percent Auto 16.9 % (2-11); Neutrophils Absolute Auto 4.8 x10*3/uL (2.0-8.3); Neutrophils Percent Auto 69.5 % (45-73); Platelet Count 179 X10*3/uL (160-400); Red Blood Count 3.36 X10*6/uL (4.20-5.50); Red Cell Distribution Width 14.6 % (11.0-16.0); White Blood Count 6.9 X10*3/uL (4.8-10.8)
[2022-03-31 20:48] LABS: D Dimer High Sensitivity 256 NG/ML
[2022-03-31 20:58] LABS: COVID-19 Test Positive (Negative); IDNOW Serial# 16C4AD1C
[2022-03-31 21:05] LABS: Alanine Aminotransferase < 6 U/L (0-31); Albumin Level 3.6 g/dL (3.5-5.0); Alkaline Phosphatase 77 U/L (39-117); Anion Gap 12 (12-20); Aspartate Amino Transferase 18 U/L (5-31); Bilirubin Total 0.3 mg/dL (0.0-1.0); Blood Urea Nitrogen 30 mg/dL (9-16); Calcium 7.8 mg/dL (8.4-10.2); Carbon Dioxide 27 mmol/L (22-29); Chloride 103 mmol/L (96-108); Estimated Glomerular Filt Rate 46; Glucose Random 122 mg/dL (60-115); Potassium 3.6 mmol/L (3.3-5.1); Sodium 138 mmol/L (135-145); Total Protein 6.1 g/dL (6.5-8.0)
[2022-03-31 21:10] LABS: B Type Natriuretic Peptide 556 pg/mL (<100); Troponin-I High Sensitivity 40.7 ng/L (<3.5-17.0)
[2022-03-31 21:39] VITALS: BP 197/59; PULSE 83
[2022-03-31 21:41] VITALS: BP 205/71; PULSE 82
[2022-03-31 21:42] VITALS: BP 166/57; PULSE 83
[2022-03-31 21:50] VITALS: BP 166/57; PULSE 84; RESP 16; TEMP 37; O2SAT 98; BMI 24.5
[2022-03-31 22:16] LABS: Appearance Urine CLEAR; Color Urine YELLOW; Glucose Urine UA NEG (NEG); Leukocyte Esterase Urine TRACE (NEG); Nitrite Urine NEG (NEG); Urine Blood NEG (NEG); Urine Ketones NEG (NEG); Urine Protein NEG (NEG-TRACE)
[2022-03-31 22:23] LABS: Bacteria Urine 3+ /LPF; Squamous Epithelial Cell Urine 1+ /LPF
--- NOTE | 2022-03-31 23:23 | PC.NURSE ---
pt a&ox3, some confusion/repeating questions, urine sample obtained, vss.
--- NOTE | 2022-03-31 23:36 | PC.NURSE ---
spoke w daughter, pt has more tests pending, will call back with update. 20G IV placed R AC, labs drawn, pt incontinent of urine. purwick placed.
[2022-04-01] VITALS (8 sets, daily range): BP systolic 135–186; BP diastolic 46–68; PULSE 64–83; RESP 13–16; TEMP 36.7–36.9; O2SAT 95–98
[2022-04-01] LABS: Troponin-I High Sensitivity 38.3 ng/L (<3.5-17.0)
[2022-04-01] MEDS: iohexoL 350 MG/ML 100 ML INFUS..BTL 85 ML IV (00:15)
[2022-04-01 03:46] LABS: MANUAL DIFF FLAG NO
[2022-04-01 03:47] LABS: Basophils Percent Auto 0.2 % (0-2); Eosinophils Percent Auto 0.5 % (0-4); Hematocrit 29.1 % (37.0-47.0); Hemoglobin 9.3 g/dl (12.0-16.0); Imm Gran Abs Auto 0.02 X10*3/uL (0.00-0.03); Imm Gran Pct Auto 0.3 % (0.0-0.4); Lymphocytes Percent Auto 16.6 % (20-40); Mean Corpuscular Hemoglobin 28.7 pg (27.0-33.0); Mean Corpuscular Volume 89.8 fL (80.0-98.0); Mean Platelet Volume 9.3 fL (9.4-12.3); Monocytes Percent Auto 15.2 % (2-11); Neutrophils Absolute Auto 4.2 x10*3/uL (2.0-8.3); Neutrophils Percent Auto 67.2 % (45-73); Platelet Count 185 X10*3/uL (160-400); Red Blood Count 3.24 X10*6/uL (4.20-5.50); Red Cell Distribution Width 14.5 % (11.0-16.0); White Blood Count 6.3 X10*3/uL (4.8-10.8)
[2022-04-01] MEDS: 0.9 % Sodium Chloride 500 ML IV (04:02)
[2022-04-01] MEDS: cefTRIAXone sodium 1 GM in 0.9 % Sodium Chloride 50 ML IV (04:03)
--- NOTE | 2022-04-01 04:03 | PC.NURSE ---
blood cultures drawn, medicated per provider order, ivf running.
[2022-04-01 04:05] LABS: Anion Gap 13 (12-20); Blood Urea Nitrogen 24 mg/dL (9-16); Carbon Dioxide 25 mmol/L (22-29); Chloride 105 mmol/L (96-108); Creatinine Clr Calc Pharmacy 34.6; Estimated Glomerular Filt Rate 54; Glucose Random 87 mg/dL (60-115); Sodium 139 mmol/L (135-145)
--- NOTE | 2022-04-01 05:40 | PC.NURSE ---
med rec completed.
--- NOTE | 2022-04-01 06:28 | PC.NURSE ---
spoke w daughter, would like to speak to provider RE plan for admission, family concerned that pt will do better at home vs hospital stay followed by rehab. provider notified.
--- NOTE | 2022-04-01 06:32 | PM.IMHP ---
History of Present Illness Date of Service: 04/01/22 Chief Complaint: fall This is an 87-year-old female with past medical history of a flutter on Eliquis, HTN, HLD, mitral regurg, aortic stenosis, melanoma, who presents to the hospital from home after a fall. Patient reports that she has been having multiple falls, she reports feeling dizzy prior to falling, no loss of consciousness, no chest pain or palpitations, reports no blurred or double vision. Denies having any nausea or vomiting, no diarrhea constipation, no urinary symptoms at this time. Patient reports that she has been congested for the past few days but has no fever no chills. No shortness, and no sputum production. On arrival to the ED patient noted to have a blood pressure 197/59, orthostatic vitals were done which showed BP of 170 moved in supine, 205/71 sitting and 165/57 standing. Labs are significant for WBC count of 6.3, on the globin of 9.8, hematocrit 30.1, BUN of 30, creatinine of 1.13, troponin of 40, BNP of 556, UA positive for leukocyte esterase and some WBC, and COVID-[address] angiogram of the chest showed no evidence of pulmonary embolism, scattered sub center pulmonary nodules are redemonstrated, she also has exophytic thyroid nodule, and hiatal hernia Given the orthostatic hypotension and evidence of fall patient will be admitted for further management. Review of Systems Review of Systems: Yes all other systems are reviewed and are negative [facility] [place] Medical History (Updated 04/01/22 @ 06:38 by Tyrone Umana MD) Aortic stenosis History of atrial flutter HLD (hyperlipidemia) HTN (hypertension) Melanoma Mitral regurgitation Family History Father No problems noted. Mother CVD (cardiovascular disease) Surgical History Hx of aortic valve replacement Hx of cholecystectomy Social History Alcohol intake: never Patient Tobacco Use Status: Never used Tobacco Use of substances other than those prescribed or required for medical reasons: No Advance Directives: No Advance Directives Information Provided: No Meds Allergies Allergy/AdvReac Type Severity Reaction Status Date / Time amlodipine [Norvasc] Allergy Unknown leg Verified 08/09/21 18:16 swelling codeine [Tylenol-Codeine #3] Allergy Unknown itching Verified 08/09/21 18:16 morphine Allergy Unknown hallucinati Unverified 08/09/21 18:16 on oxycodone [OXYCODONE] Allergy Unknown AGITATION Verified 08/09/21 18:16 scallops [SCALLOPS] AdvReac Intermediate NAUSEA & Verified 08/09/21 18:16 VOMITING Active Medications: Current Medications Acetaminophen (Acetaminophen 325 Mg Tablet) 650 mg PO Q6H PRN PRN Reason: Pain, Mild (Pain Scale 1-3) Docusate Sodium (Docusate Sodium 100 Mg Capsule) 100 mg PO DAILY PRN PRN Reason: Constipation Ceftriaxone Sodium 1 gm/ (Sodium Chloride) 50 mls @ 100 mls/hr IV Q24H JOSEFA Ondansetron HCl (Ondansetron Hcl 4 Mg/2 Ml Vial) 4 mg IVPUSH Q8H PRN PRN Reason: Nausea and Vomiting Pharmacy Consult (Consult Rx Perform Med Rec) 1 each MISCELLANE ONCE PRN PRN Reason: Consult order Home Medications Medication Instructions Recorded Confirmed Last Taken Type metoprolol tartrate 50 mg tablet 50 mg PO BID 12/21/20 03/31/22 Unknown History hydrochlorothiazide 12.5 mg capsule 12.5 mg PO DAILY 07/31/21 04/01/22 Unknown History apixaban 2.5 mg tablet (Eliquis) 1 tab PO BID 03/31/22 03/31/22 Unknown History carbidopa 25 mg-levodopa 100 mg tab PO 03/31/22 Unknown History tablet furosemide 20 mg tablet 1 tab PO DAILY 03/31/22 03/31/22 03/31/22 08:00 History Physical Exam Vital Signs and Narrative: Vital Signs: Last Vital Signs Temp 98.6 F 03/31/22 21:50 Pulse 84 03/31/22 21:50 Resp 16 03/31/22 21:50 BP 166/57 H 03/31/22 21:50 Pulse Ox 98 03/31/22 21:50 O2 Del Method 03/31/22 21:50 BMI result Body Mass Index 24.5 Const: General: cooperative and no acute distress Orientation/consciousness: patient oriented x3 Eyes: General: appearance normal, both eyes and all related structures Resp: Other: Upper respiratory congestion noted Effort & Inspection: normal respiratory effort Auscultation: clear to auscultation bilaterally Cardio: Rate: regular rate Rhythm: regular rhythm GI: Palpation (GI): Soft to palpation Auscultation: normal bowel sounds Skin: Other: Bruising noted in her lower extremities Neuro: General: patient oriented x3 Cognition (Neuro): normal cognition Extrem: General: Yes normal to inspection and Yes no pedal edema Results Labs CBC and Chem 7: 04/01/22 03:40 04/01/22 03:40 Labs: Laboratory Results - last 24 hr 03/31/22 03/31/22 03/31/22 20:27 20:27 20:27 MCV 89.6 MCH 29.2 MCHC 32.6 RDW 14.6 Plt Count 179 MPV 8.7 L Immature Gran % (Auto) 0.4 Neut % (Auto) 69.5 Lymph % (Auto) 12.8 L [place] % (Auto) 16.9 H Eos % (Auto) 0.3 Baso % (Auto) 0.1 Lymph # (Auto) 0.9 L [place] # (Auto) 1.2 Eos # (Auto) 0.0 Baso # (Auto) 0.0 Abs Immat Gran (auto) 0.03 Absolute Neuts (auto) 4.8 Absolute Nucleated RBC 0.000 Nucleated RBC % (auto) 0.0 D-Dimer High Sensitivty Anion Gap 12 Estim Creat Clear Calc TNP Estimated GFR 46 Random Glucose 122 H Calcium 7.8 L Magnesium 2.0 Total Bilirubin 0.3 AST 18 ALT < 6 Alkaline Phosphatase 77 Troponin I High Sens B-Natriuretic Peptide 556 H Total Protein 6.1 L Albumin 3.6 Urine Color Urine Appearance Urine pH Ur Specific [place] Urine Protein Urine Glucose (UA) Urine Ketones Urine Blood Urine Nitrite Ur Leukocyte Esterase Urine RBC Urine WBC Ur Squamous Epith Cells Urine Bacteria COVID-19 (VERNA) COVID-19 Clin Com 03/31/22 03/31/22 03/31/22 20:27 20:27 20:29 MCV MCH MCHC RDW Plt Count MPV Immature Gran % (Auto) Neut % (Auto) Lymph % (Auto) [place] % (Auto) Eos % (Auto) Baso % (Auto) Lymph # (Auto) [place] # (Auto) Eos # (Auto) Baso # (Auto) Abs Immat Gran (auto) Absolute Neuts (auto) Absolute Nucleated RBC Nucleated RBC % (auto) D-Dimer High Sensitivty 256 Anion Gap Estim Creat Clear Calc Estimated GFR Random Glucose Calcium Magnesium Total Bilirubin AST ALT Alkaline Phosphatase Troponin I High Sens 40.7 H B-Natriuretic Peptide Total Protein Albumin Urine Color Urine Appearance Urine pH Ur Specific [place] Urine Protein Urine Glucose (UA) Urine Ketones Urine Blood Urine Nitrite Ur Leukocyte Esterase Urine RBC Urine WBC Ur Squamous Epith Cells Urine Bacteria COVID-19 (VERNA) Positive A COVID-19 Clin Com See Note 03/31/22 03/31/22 04/01/22 22:10 23:33 03:40 MCV 89.8 MCH 28.7 MCHC 32.0 RDW 14.5 Plt Count 185 MPV 9.3 L Immature Gran % (Auto) 0.3 Neut % (Auto) 67.2 Lymph % (Auto) 16.6 L [place] % (Auto) 15.2 H Eos % (Auto) 0.5 Baso % (Auto) 0.2 Lymph # (Auto) 1.0 L [place] # (Auto) 1.0 Eos # (Auto) 0.0 Baso # (Auto) 0.0 Abs Immat Gran (auto) 0.02 Absolute Neuts (auto) 4.2 Absolute Nucleated RBC 0.000 Nucleated RBC % (auto) 0.0 D-Dimer High Sensitivty Anion Gap Estim Creat Clear Calc Estimated GFR Random Glucose Calcium Magnesium Total Bilirubin AST ALT Alkaline Phosphatase Troponin I High Sens 38.3 H B-Natriuretic Peptide Total Protein Albumin Urine Color YELLOW Urine Appearance CLEAR Urine pH 6.0 Ur Specific [place] 1.010 Urine Protein NEG Urine Glucose (UA) NEG Urine Ketones NEG Urine Blood NEG Urine Nitrite NEG Ur Leukocyte Esterase TRACE H Urine RBC 1-4 Urine WBC 5-9 H Ur Squamous Epith Cells 1+ Urine Bacteria 3+ COVID-19 (VERNA) COVID-19 Clin Com 04/01/22 03:40 MCV MCH MCHC RDW Plt Count MPV Immature Gran % (Auto) Neut % (Auto) Lymph % (Auto) [place] % (Auto) Eos % (Auto) Baso % (Auto) Lymph # (Auto) [place] # (Auto) Eos # (Auto) Baso # (Auto) Abs Immat Gran (auto) Absolute Neuts (auto) Absolute Nucleated RBC Nucleated RBC % (auto) D-Dimer High Sensitivty Anion Gap 13 Estim Creat Clear Calc 34.6 Estimated GFR 54 Random Glucose 87 Calcium 8.0 L Magnesium Total Bilirubin AST ALT Alkaline Phosphatase Troponin I High Sens B-Natriuretic Peptide Total Protein Albumin Urine Color Urine Appearance Urine pH Ur Specific [place] Urine Protein Urine Glucose (UA) Urine Ketones Urine Blood Urine Nitrite Ur Leukocyte Esterase Urine RBC Urine WBC Ur Squamous Epith Cells Urine Bacteria COVID-19 (VERNA) COVID-19 Clin Com Imaging Radiologist's Impressions: Impressions Cervical Spine CT 03/31/22 21:45 IMPRESSION: No acute intracranial pathology. Multilevel degenerative changes of the cervical spine but no acute osseous abnormality of the cervical spine. There is a 1.7 cm heterogeneous nodule exophytic from the lower pole of the left lobe of the thyroid. Consider thyroid ultrasound for further evaluation. Head CT 03/31/22 21:45 IMPRESSION: No acute intracranial pathology. Multilevel degenerative changes of the cervical spine but no acute osseous abnormality of the cervical spine. There is a 1.7 cm heterogeneous nodule exophytic from the lower pole of the left lobe of the thyroid. Consider thyroid ultrasound for further evaluation. Abdomen/Pelvis CT 03/31/22 21:50 IMPRESSION: There is superior endplate compression deformity of T12 with slight 2 mm retropulsion of the posterior wall into the ventral CSF space. The finding is new since the prior study 03/28/2020 but not necessarily acute. Recommend correlation with symptoms of back pain. Limited by lack of IV contrast, no evidence of solid visceral organ injury in the chest, abdomen, or pelvis. Chest CT 03/31/22 21:50 IMPRESSION: There is superior endplate compression deformity of T12 with slight 2 mm retropulsion of the posterior wall into the ventral CSF space. The finding is new since the prior study 03/28/2020 but not necessarily acute. Recommend correlation with symptoms of back pain. Limited by lack of IV contrast, no evidence of solid visceral organ injury in the chest, abdomen, or pelvis. Chest CTA 04/01/22 00:14 IMPRESSION: 1. No evidence of pulmonary embolism nor increased right-sided heart pressures. 2. Scattered subcentimeter pulmonary nodules are redemonstrated. Assuming patient has no history of malignancy, recommend follow-up per Fleischner Society recommendations. According to the UPDATED 2017 Fleischner Society recommendations, the advised followup imaging for solid nodules < 6 mm is: LOW RISK PATIENT: No routine follow up. HIGH RISK PATIENT: Optional CT at 12 months. 3. Again noted exophytic thyroid nodule, consider thyroid ultrasound for further evaluation. 4. Stable compression deformity at T12 with similar degree of retropulsion into the anterior spinal canal. 5. Again noted hiatal hernia. VTE: negative Assessment and Plan (1) Orthostatic dizziness: Status: Acute (2) COVID-19: Status: Acute (3) Acute UTI: Status: Acute (4) Fall: Status: Acute Plan 87-year-old female with past medical history of a flutter, aortic stenosis, mitral regurg, who presents to the hospital after having a fall found to have COVID-19 infection and orthostatic positive vitals. # orthostatic dizziness - with frequent falls - BP significantly drops from the 200s to 160s on standing - at this time will hold antihypertensives - consult Nephrology - fall precautions # COVID-19 infection - no respiratory symptoms except upper respiratory and congestion -no hypoxia -Infectious Disease for remdesivir # acute UTI - positive UA - will treat with IV antibiotics - follow cultures # fall - no loss of conscious -complaints of dizziness prior to fall - likely secondary to orthostatic hypotension -consider PT OT prior to discharge DVT prophylaxis: Heparin subQ Given the symptomatic orthostatic vitals and need for further monitoring and management patient will require minimal to night hospital stay for further management Quality Stroke Does the patient have a stroke diagnosis?: No VTE Prior VTE?: No VTE Risk Level:: Medical - moderate - high VTE Device Contraindication: Treatment Not Indicated VTE Drug Contraindication: N/A - Med Ordered
--- NOTE | 2022-04-01 08:49 | PHA.MEDREC ---
Pharmacy Consult ? Medication Reconciliation Pharmacy has reviewed the medication reconciliation completed by Jovanni. Spoke with patient's daughter Gaby to confirm medications. Patient no longer on HCTZ, therefore I removed from the list. Sinement dose was updated to TID. OTC medications were added the home list. Dr. Kirby was updated on the changes. Gaby reported that patient cannot have narcotics. Patient gets itchy and hallucinates when given narcotics. Supriya Samaniego, PharmD
[2022-04-01] MEDS: Aspirin Enteric Coated 81 MG TABLET.DR PO (09:31)
[2022-04-01] MEDS: Apixaban 2.5 MG TABLET PO ×2 (09:31→20:24)
[2022-04-01] MEDS: Metoprolol Tartrate 50 MG TABLET PO ×2 (09:31→20:24)
--- NOTE | 2022-04-01 09:35 | PC.NURSE ---
patient A/O3 . lungs clear heart rate on monitor irregular at 70 with occasional PVC's. skin pink warm and dry with bruising noted on left hand and forearm . dressing on skin tare on forearm changed by this RN . Area unapproximated 5cm long . covered with non adhesive dressing and wrapped with cling . patient tolerated well . bed at lowest possible position patient aware of plan of care .
--- NOTE | 2022-04-01 11:10 | PM.EVENT ---
Event Note Date of Service: 04/01/22 Event Note: Seen and evaluated this morning Feels fatigued with no energy Blood pressure better controlled but still elevated Her symptoms likely from COVID not postural hypotension as she was never hypotensive Finish medication reconciliation To do physical therapy Pending ID and Nephrology evaluation
[2022-04-01] MEDS: Carbidopa/Levodopa 25/100 TABLET 1 TAB PO ×3 (11:46→20:24)
--- NOTE | 2022-04-01 12:58 | PC.NURSE ---
pt's daughter patrica (hcp, ) is upset that her mother is being admitted to the hosp and states that her mother can be cared for at home. pt's daughter patrica also states that the pt is a DNR. Dr Marcia shen.
--- NOTE | 2022-04-01 15:34 | W.PM.IDCN ---
History of Present Illness Data of Consult Service Date: 04/01/22 Requesting physician: Kt Kirby Primary Care Provider: MD ARLETH Ya Reason for consult: weakness,falls She presents with four to five days weakness and falls. She is positive for COVID. It is unclear if she has urinary symptoms. Review of Systems Review of Systems: Yes all other systems are reviewed and are negative [facility] Past Medical History Medical History Aortic stenosis History of atrial flutter HLD (hyperlipidemia) HTN (hypertension) Melanoma Mitral regurgitation Family History Family History Father No problems noted. Mother CVD (cardiovascular disease) Surgical History Surgical History Hx of aortic valve replacement Hx of cholecystectomy Social History Social History Alcohol intake: never Patient Tobacco Use Status: Never used Tobacco Use of substances other than those prescribed or required for medical reasons: No Advance Directives: No Advance Directives Information Provided: No Meds Allergies Allergy/AdvReac Type Severity Reaction Status Date / Time amlodipine [Norvasc] Allergy Unknown leg Verified 08/09/21 18:16 swelling codeine [Tylenol-Codeine #3] Allergy Unknown itching Verified 08/09/21 18:16 morphine Allergy Unknown hallucinati Unverified 08/09/21 18:16 on oxycodone [OXYCODONE] Allergy Unknown AGITATION Verified 08/09/21 18:16 scallops [SCALLOPS] AdvReac Intermediate NAUSEA & Verified 08/09/21 18:16 VOMITING Active Medications: Current Medications Acetaminophen (Acetaminophen 325 Mg Tablet) 650 mg PO Q6H PRN PRN Reason: Pain, Mild (Pain Scale 1-3) Acetaminophen (Acetaminophen 325 Mg Tablet) 975 mg PO BID [facility] Apixaban (Apixaban 2.5 Mg Tablet) 2.5 mg PO BID [facility] Last Admin: 04/01/22 09:31 Dose: 2.5 mg Aspirin (Aspirin Enteric Coated 81 Mg Tablet.Dr) 81 mg PO DAILY [facility] Last Admin: 07/18/22 09:31 Dose: 81 mg Carbidopa/Levodopa (Carbidopa/Levodopa 25/100 Tablet) 1 tab PO TID [facility] Last Admin: 04/01/22 15:27 Dose: 1 tab Cyanocobalamin (Cyanocobalamin (Vitamin B-12) 1,000 Mcg Tablet) 1,000 mcg PO DAILY [facility] Docusate Sodium (Docusate Sodium 100 Mg Capsule) 100 mg PO DAILY PRN PRN Reason: Constipation Ceftriaxone Sodium 1 gm/ (Sodium Chloride) 50 mls @ 100 mls/hr IV Q24H [facility] Metoprolol Tartrate (Metoprolol Tartrate 50 Mg Tablet) 50 mg PO BID [facility]; Protocol Last Admin: 04/01/22 09:31 Dose: 50 mg Ondansetron HCl (Ondansetron Hcl 4 Mg/2 Ml Vial) 4 mg IVPUSH Q8H PRN PRN Reason: Nausea and Vomiting Pharmacy Consult (Consult Rx Perform Med Rec) 1 each MISCELLANE ONCE PRN PRN Reason: Consult order Vitamin D (Cholecalciferol (Vitamin D3) 25 Mcg Tablet) 25 mcg PO DAILY [facility] Home Medications Medication Instructions Recorded Confirmed Last Taken Type metoprolol tartrate 50 mg tablet 50 mg PO BID 12/21/20 03/31/22 Unknown History apixaban 2.5 mg tablet (Eliquis) 1 tab PO BID 03/31/22 03/31/22 Unknown History carbidopa 25 mg-levodopa 100 mg 1 tab PO TID 03/31/22 04/01/22 Unknown History tablet furosemide 20 mg tablet 1 tab PO DAILY 03/31/22 03/31/22 03/31/22 08:00 History Bladder Support Supplement 1 tab PO DAILY 04/01/22 04/01/22 Unknown History Probiotic 1 tab PO DAILY 04/01/22 04/01/22 Unknown History acetaminophen 500 mg tablet 1,000 mg PO BID 04/01/22 04/01/22 Unknown History (Tylenol Extra Strength) cholecalciferol (vitamin D3) 25 25 mcg PO DAILY 04/01/22 04/01/22 Unknown History mcg (1,000 unit) tablet cyanocobalamin (vitamin B-12) 1,000 mcg PO DAILY 04/01/22 04/01/22 Unknown History 1,000 mcg tablet Physical Exam Vital Signs: Vital Signs: Last Vital Signs Temp 98.2 F 04/01/22 15:19 Pulse 64 04/01/22 15:19 Resp 16 04/01/22 15:19 BP 142/49 H 04/01/22 15:19 Pulse Ox 96 04/01/22 11:34 O2 Del Method 04/01/22 08:39 BMI result Body Mass Index 24.5 Const: General: awake Eyes: General: appearance normal, both eyes and all related structures Resp: Effort & Inspection: normal respiratory effort Cardio: Rate: regular rate Rhythm: regular rhythm GI: Palpation (GI): nontender Extrem: General: Yes normal to inspection Results Labs CBC & Chem 7: 04/01/22 03:40 04/01/22 03:40 Labs: Short CBC 03/31/22 04/01/22 Range/Units 20:27 03:40 WBC 6.9 6.3 (4.8-10.8) X10*3/uL Hgb 9.8 L 9.3 L (12.0-16.0) g/dl Hct 30.1 L 29.1 L (37.0-47.0) % Plt Count 179 185 (160-400) X10*3/uL BMP 03/31/22 04/01/22 20:27 03:40 Sodium 138 139 Potassium 3.6 4.0 Chloride 103 105 Carbon Dioxide 27 25 BUN 30 H 24 H Creatinine 1.13 0.98 Calcium 7.8 L 8.0 L Liver Function 03/31/22 Range/Units 20:27 Total Bilirubin 0.3 (0.0-1.0) mg/dL AST 18 (5-31) U/L ALT < 6 (0-31) U/L Alkaline Phosphatase 77 (39-117) U/L Albumin 3.6 (3.5-5.0) g/dL Urine 03/31/22 Range/Units 22:10 Urine Color YELLOW Urine Appearance CLEAR Urine pH 6.0 (5.0-8.0) Ur Specific [place] 1.010 (1.005-1.025) Urine Protein NEG (NEG-TRACE) MG/DL Urine Glucose (UA) NEG (NEG) MG/DL Assessment and Plan (1) COVID-19: Status: Acute no treatment for COVID since not hypoxic. (2) Acute UTI: Status: Acute await urine culture IV Ceftriaxone for now,switch to po Ceftin for 10d likely No COVID treatment, not hypoxic.
--- NOTE | 2022-04-01 17:58 | PC.NURSE ---
patient episode of increased confusion . looking for children and thinking she is in [place] .patient talking to invisible son in room . patient had episode of incontinence , changed and repositioned . patients bed put at lowest level . patient awre of plan of care .
--- NOTE | 2022-04-01 19:17 | PC.NURSE ---
assumed care of pt at 191
[2022-04-01] MEDS: Acetaminophen 325 MG TABLET 975 MG PO (20:23)
--- NOTE | 2022-04-01 20:30 | PC.NURSE ---
pt given meds per MAR
[2022-04-02] MEDS: cefTRIAXone sodium 1 GM in 0.9 % Sodium Chloride 50 ML IV (01:45)
[2022-04-02 02:55] VITALS: BP 150/54; PULSE 72; RESP 18; TEMP 37.2; O2SAT 97
[2022-04-02 06:41] VITALS: BP 160/56; PULSE 81; RESP 12; TEMP 36.8; O2SAT 97
[2022-04-02 07:12] LABS: Anion Gap 12 (12-20); Blood Urea Nitrogen 20 mg/dL (9-16); Calcium 7.7 mg/dL (8.4-10.2); Carbon Dioxide 26 mmol/L (22-29); Chloride 108 mmol/L (96-108); Creatinine Clr Calc Pharmacy 39.4; Estimated Glomerular Filt Rate > 60; Glucose Random 91 mg/dL (60-115); Potassium 3.7 mmol/L (3.3-5.1); Sodium 142 mmol/L (135-145)
--- NOTE | 2022-04-02 08:01 | P.CDIC_ITS ---
CDI Concurrent Query Documentation Clarification: PHYSICIAN'S DOCUMENTATION REQUEST Date of Query: 04/02/22 0803 Patient Name: Soledad Padilla Admit Date: 04/01/22 Dear Doctor, A review of the medical record indicates additional documentation may be needed. Please review below and update the documentation accordingly. Clinical Indicators: Risk Factors/Clinical Indicators/Treatments Past medical history of A flutter on eliquis. If possible, please provide further specificity regarding atrial flutter, such as: Atypical Atrial flutter Typical Atrial flutter Unspecified Atrial flutter * Other, Type 1, Type 2 etc. or unkown * Unable to determine Use of terms such as suspected, likely, concern for, or probable (associated with a specific diagnosis that is being evaluated, monitored, or treated as if it exists) are acceptable and can be coded in the inpatient setting, when documented at the time of discharge. Thank you, Breanne Anderson [facility], CDIS Extension: [phone] Please use your independent medical judgment in providing your response. THIS QUERY IS PART OF THE PERMANENT MEDICAL RECORD Provider Response: Other Other Diagnosis: Unspecified atrial flutter
[2022-04-02] MEDS: Metoprolol Tartrate 50 MG TABLET PO (09:59)
[2022-04-02] MEDS: Cyanocobalamin (Vitamin B-12) 1,000 MCG TABLET 1000 MCG PO (09:59)
[2022-04-02] MEDS: Carbidopa/Levodopa 25/100 TABLET 1 TAB PO (09:59)
[2022-04-02] MEDS: Aspirin Enteric Coated 81 MG TABLET.DR PO (09:59)
[2022-04-02] MEDS: Furosemide 20 MG TABLET PO (09:59)
[2022-04-02] MEDS: Apixaban 2.5 MG TABLET PO (10:00)
[2022-04-02] MEDS: Acetaminophen 325 MG TABLET 975 MG PO (10:00)
[2022-04-02] MEDS: Cholecalciferol (Vitamin D3) 25 MCG TABLET PO (10:00)
[2022-04-02 10:26] VITALS: BP 167/55; PULSE 69; RESP 13; O2SAT 99
--- NOTE | 2022-04-02 13:41 | P.DS_ITS ---
DS: Providers Provider Date of Service: 04/02/22 Date of admission: 04/01/22 01:34 Primary care physician: Edith Moy MD Consults: 04/01/22 01:36 Consult to Nephrology Routine Consulting Provider: [facility] Reason for consultation: supine htn, orthostatics positive, 04/01/22 06:41 Consult to Infectious Diseases Routine Consulting Provider: Jasmin Galindo Reason for consultation: Remdesivir ? Has provider been notified: No DS: Diagnosis Discharge Diagnosis (1) COVID-19: Status: Acute (2) Acute UTI: Status: Acute (3) Thyroid nodule: Status: Acute (4) Fall: Status: Acute DS: Summary Hospital Course Hospital Course: Admission note HPI This is an 87-year-old female with past medical history of a flutter on Eliquis, HTN, HLD, mitral regurg, aortic stenosis, melanoma, who presents to the hospital from home after a fall.? Patient reports that she has been having multiple falls, she reports feeling dizzy prior to falling, no loss of consciousness, no chest pain or palpitations, reports no blurred or double vision.? Denies having any nausea or vomiting, no diarrhea constipation, no urinary symptoms at this time.? Patient reports that she has been congested for the past few days but has no fever no chills.? No shortness, and no sputum production. On arrival to the ED patient noted to have a blood pressure 197/59, orthostatic vitals were done which showed BP of 170 moved in supine, 205/71 sitting and 165/57 standing. Labs are significant for WBC count of 6.3, on the globin of 9.8, hematocrit 30.1, BUN of 30, creatinine of 1.13, troponin of 40, BNP of 556, UA positive for leukocyte esterase and some WBC, and COVID-[address] angiogram of the chest showed no evidence of pulmonary embolism, scattered sub center pulmonary nodules are redemonstrated, she also has exophytic thyroid nodule, and hiatal hernia Hospital course the patient was admitted for evaluation of fall. Likely related to her history of Parkinson disease, recent COVID in urine infection. She was evaluated by physical therapy team who recommended short-term rehab. Patient and family feels more comfortable of her going back home with therapy at home. Noticed to have COVID-19 infection. Evaluated by infectious disease specialist who recommended no treatment at this point as the patient maintaining her oxygen level in 90s while on room air. Noticed to urine infection treated with IV ceftriaxone. Urine culture negative. To be discharged on Ceftin to finish total of 5 days of antibiotics. blood pressure was noticed to be mainly elevated. Asked to monitor blood pressure at home and report readings to PCP for further adjustments of her medications. Continue Ceftin for 4 more days Try to stand up and start moving slowly, you are at higher risk of lightheadedness And falls Monitor your blood pressure at home and report 1 week readings to your PCP To do physical therapy at home To follow-up for thyroid ultrasound as outpatient.. Time Spent with Patient Time attestation: Total time spent providing and/or coordinating discharge services: Discharge coordination time: Greater than 30 minutes Quality: Safe Use of Opioids Does Pt have an Active Cancer Diagnosis on the Problem List?: No Quality: Stroke Does the patient have a stroke diagnosis?: No Physical Exam Vital Signs: Vital Signs: Last Vital Signs Temp 98.2 F 04/02/22 06:41 Pulse 69 04/02/22 10:26 Resp 13 04/02/22 10:26 BP 167/55 H 04/02/22 10:26 Pulse Ox 99 04/02/22 10:26 O2 Del Method 04/02/22 10:26 BMI result Body Mass Index 24.5 Const: Other: Constitutional : Alert, interactive, not in distress Neck : Normal inspection, Supple Cardiovascular : RRR, no JVP, no lower extremity edema Respiratory : fair bilateral air entry, no crackles, wheezes or rhonchi Gastrointestinal: soft, lax, Normal bowel sounds, Non tender Skin : Warm, Dry Neurological : Alert & oriented x3, No focal deficit , CN 2-12 within normal DS: Data Data Completed and Pending Labs on day of discharge: Laboratory Results - last 24 hr 04/02/22 06:35 Sodium 142 Potassium 3.7 Chloride 108 Carbon Dioxide 26 Anion Gap 12 BUN 20 H Creatinine 0.86 Estim Creat Clear Calc 39.4 Estimated GFR > 60 Random Glucose 91 Calcium 7.7 L Preliminary micro results at discharge 04/01/22 03:40 Blood Culture - Preliminary Blood - Venous No growth after 24 hours. 04/01/22 03:40 Blood Culture - Preliminary Blood - Venous No growth after 24 hours. Imaging Chest x-ray: Radiologist's impression: ITS Impressions Cervical Spine CT 03/31/22 21:45 IMPRESSION: No acute intracranial pathology. Multilevel degenerative changes of the cervical spine but no acute osseous abnormality of the cervical spine. There is a 1.7 cm heterogeneous nodule exophytic from the lower pole of the left lobe of the thyroid. Consider thyroid ultrasound for further evaluation. Head CT 03/31/22 21:45 IMPRESSION: No acute intracranial pathology. Multilevel degenerative changes of the cervical spine but no acute osseous abnormality of the cervical spine. There is a 1.7 cm heterogeneous nodule exophytic from the lower pole of the left lobe of the thyroid. Consider thyroid ultrasound for further evaluation. Abdomen/Pelvis CT 03/31/22 21:50 IMPRESSION: There is superior endplate compression deformity of T12 with slight 2 mm retropulsion of the posterior wall into the ventral CSF space. The finding is new since the prior study 03/28/2020 but not necessarily acute. Recommend correlation with symptoms of back pain. Limited by lack of IV contrast, no evidence of solid visceral organ injury in the chest, abdomen, or pelvis. Chest CT 03/31/22 21:50 IMPRESSION: There is superior endplate compression deformity of T12 with slight 2 mm retropulsion of the posterior wall into the ventral CSF space. The finding is new since the prior study 03/28/2020 but not necessarily acute. Recommend correlation with symptoms of back pain. Limited by lack of IV contrast, no evidence of solid visceral organ injury in the chest, abdomen, or pelvis. Chest CTA 04/01/22 00:14 IMPRESSION: 1. No evidence of pulmonary embolism nor increased right-sided heart pressures. 2. Scattered subcentimeter pulmonary nodules are redemonstrated. Assuming patient has no history of malignancy, recommend follow-up per Fleischner Society recommendations. According to the UPDATED 2017 Fleischner Society recommendations, the advised followup imaging for solid nodules < 6 mm is: LOW RISK PATIENT: No routine follow up. HIGH RISK PATIENT: Optional CT at 12 months. 3. Again noted exophytic thyroid nodule, consider thyroid ultrasound for further evaluation. 4. Stable compression deformity at T12 with similar degree of retropulsion into the anterior spinal canal. 5. Again noted hiatal hernia. VTE: negative Discharge Plan Discharge Patient Disposition: Home Health Service Discharge Diagnosis: Urinary tract infection COVID-19 infection Fall Referrals: Edith Moy MD [Primary Care Provider] - 1 Week Discharge Medications: New cefuroxime axetil 250 mg tablet 250 mg PO BID Qty: 7 0RF Continued furosemide 20 mg tablet 1 tab PO DAILY carbidopa-levodopa 25-100 mg tablet 1 tab PO TID Eliquis 2.5 mg tablet 1 tab PO BID cyanocobalamin (vitamin B-12) 1,000 mcg Tablet 1,000 mcg PO DAILY cholecalciferol (vitamin D3) 25 mcg (1,000 unit) Tablet 25 mcg PO DAILY Bladder Support Supplement 1 tab PO DAILY Probiotic 1 tab PO DAILY acetaminophen [Tylenol Extra Strength] 500 mg Tablet 1,000 mg PO BID metoprolol tartrate 50 mg tablet 50 mg PO BID aspirin [Adult Aspirin Regimen] 81 mg tablet,delayed release (DR/EC) 81 mg PO DAILY Qty: 30 11RF Discharge Orders: Discharge Order (Routine); Ordered 04/02/22 Ordered By: Kt Kirby Diet: Advance to usual diet Activity on Discharge: As tolerated Stand Alone Forms: Patient Portal Discharge page Other Ambulatory Orders: US thyroid (Routine) Timeframe: 2 Weeks Facility: [facility] - Location: Ultrasound Ordered By: tK Kirby Care Plan Goals: Read below Health Concerns: Read below Plan of Treatment: Read below Assessment: You were admitted to the hospital after sustaining a fall. Noticed to have an evidence of urinary tract infection along with diagnosis of COVID which both are likely contributing to your physical deconditioning.You were treated with IV antibiotics. Continue Ceftin for 4 more days Try to stand up and start moving slowly, you are at higher risk of lightheadedness And falls Monitor your blood pressure at home and report 1 week readings to your PCP To do physical therapy at home. CT should scan showed an evidence of thyroid nodule. Will need an outpatient evaluation with thyroid ultrasound.
--- NOTE | 2022-04-03 11:31 | W.MHC.F2F ---
Service Date Service Date: 04/03/22 Encounter Date of encounter: 04/02/22 Reasons for Services Signs and symptoms assessed: physical deconditioning Reason for [facility]: teach disease management Reason for physical therapy: home safety and mobility and therapeutic exercises Homebound: Leaving the home is medically contraindicated at this time without the asist of a device and/or another person due th the listed conditions above and below. Reason homebound: other Certification: Based on the above findings, I certify that this patient is confined to the home and needs intermittent [facility] care, physical therapy and/or speech therapy, or continues to need occupational therapy. The patient is under my care, and I have initiated the establishment of the plan of care. The patient will be followed by a physician who will periodically review the plan of care.
== END 2022-04-02 15:13 | disposition home health service (06) | DRG 178 ==
LOC: HO.ED 04-01 01:34 → HO.EDOVER 04-01 02:45
PROVIDERS: Physician Assistant; Admitting Provider Internal Medicine; Emergency Provider Emergency Medicine; PCP Internal Medicine; Visit Provider Student in an Organized Health Care Education/Training Program
DX: U07.1 COVID-19 (principal); I48.92 Unspecified atrial flutter; N39.0 Urinary tract infection, site not specified; I10 Essential (primary) hypertension; I08.0 Rheumatic disorders of both mitral and aortic valves; I95.1 Orthostatic hypotension; E04.1 Nontoxic single thyroid nodule; E78.5 Hyperlipidemia, unspecified; Z95.2 Presence of prosthetic heart valve; Z91.013 Allergy to seafood; Z88.5 Allergy status to narcotic agent; Z88.8 Allergy status to other drugs, medicaments and biological substances; Z79.01 Long term (current) use of anticoagulants; Z79.82 Long term (current) use of aspirin; Z79.899 Other long term (current) drug therapy
CPT/HCPCS: 36415; 70450; 71250; 71275; 72125; 74176; 80048; 80053; 81001; 83735; 83880; 84484; 85025; 85379; 87040; 87635; 93005; 96361; 96365; 97162; 99218; 99285; J0696; Q9967

== ENCOUNTER 2023-01-16 08:02 | Emergency (ER) | payer MEDICARE, SELFPAY ==
--- NOTE | ~2023-01-16 | CT_ITS ---
EXAMINATION: CT FACIAL BONES WITHOUT CONTRAST CLINICAL INFORMATION: Facial pain. Trauma COMPARISON: None available. TECHNIQUE: Thin section axial images with sagittal and coronal reformats obtained. This CT examination was performed using dose optimization techniques as appropriate, variously including the following: *Automated exposure control *Adjustment of mA and/or kV according to patient size (this includes techniques or standardized protocols for targeted exams where dose is matched to indication/reason for exam; i.e. extremities or head) *Use of iterative reconstruction technique DLP: 271 mGy-cm FINDINGS: There is a soft tissue hematoma noted overlying the right maxilla and right orbit at 18 x 34 mm. The underlying right orbit and right globe are intact. No adjacent fracture. The right and left zygomatic arches are intact. The mandible is intact. Orbits are intact. There are no retrobulbar collections. There is moderate mucoperiosteal thickening in the ethmoid sinuses. There is slight narrowing of the right and left infundibulum. There is mild mucoperiosteal thickening within the sphenoid and maxillary sinuses. There is mild deviation of the nasal septum towards the right. No fracture or destructive process. CT/CT facial bones wo IV con IMPRESSION: Soft tissue swelling and hematoma overlies the right orbit and right maxilla and zygomatic region but no underlying fracture.
--- NOTE | ~2023-01-16 | CT_ITS ---
EXAMINATION: CT HEAD AND FACIAL BONES WITHOUT CONTRAST CLINICAL INFORMATION: Acute head injury. COMPARISON: Head CT scan dated 03/31/2022. TECHNIQUE: Multiple axial images of the head and facial bones were obtained without the administration of intravenous contrast. Coronal and sagittal reformatted images were obtained. Positioning is suboptimal. This CT examination was performed using dose optimization techniques as appropriate, variously including the following: *Automated exposure control *Adjustment of mA and/or kV according to patient size (this includes techniques or standardized protocols for targeted exams where dose is matched to indication/reason for exam; i.e. extremities or head) *Use of iterative reconstruction technique DLP: 678.51, 271.45 mGy-cm FINDINGS: Head: There is mild to moderate widening of the cortical sulci and associated ventriculomegaly. The lateral ventricles are symmetrical. The third and fourth ventricles are in their normal midline position. The basilar and prepontine cisterns are unremarkable. A right frontal punctate calcification is again seen without significant change. Mild to moderate periventricular microvascular changes are seen as well. There is no acute intra or extracerebral abnormality. There is no mass effect or midline shift. There is a small to moderate right posterior parietal subgaleal hematoma without acute underlying osseous abnormality. Sections through the bony calvarium are unremarkable. Facial bones: Significant asymmetric soft tissue swelling is seen in the right base most pronounced in the right cheek region with small to moderate-sized subcutaneous hematomas. The frontal bones, zygomatic arches and pterygoid plates are intact. The bony orbits and orbital contents are unremarkable. The maxilla is intact. The mandible is intact. Mild temporomandibular joint degenerative joint changes are seen, right greater than left. The paranasal sinuses show minimal mucosal thickening in the maxillary and ethmoid sinuses. No air-fluid levels. The ostiomeatal complexes are patent and within normal limits. The visualized mastoid air cells are clear. CT/CT head/brain wo IV con IMPRESSION: 1. No acute intracranial pathology. 2. Small to moderate right posterior parietal subgaleal hematoma without acute underlying osseous abnormality. 3. Significant right facial soft tissue swelling and subcutaneous hematomas without overt acute underlying osseous abnormality.
--- NOTE | ~2023-01-16 | CT_ITS ---
EXAMINATION: CT CERVICAL SPINE WITHOUT CONTRAST CLINICAL INFORMATION: Acute head injury. COMPARISON: None available. TECHNIQUE: Multiple axial images of the cervical spine were obtained without the administration of intravenous contrast. Coronal and sagittal reformatted images were obtained. This CT examination was performed using dose optimization techniques as appropriate, variously including the following: *Automated exposure control *Adjustment of mA and/or kV according to patient size (this includes techniques or standardized protocols for targeted exams where dose is matched to indication/reason for exam; i.e. extremities or head) *Use of iterative reconstruction technique DLP: 222.36 mGy-cm FINDINGS: Mild cervical thoracic dextro scoliosis is seen with apex at T1. There is generalized osteopenia. Mild to moderate multilevel degenerative changes are seen most pronounced at C5-C6 and C6-C7. A mild superior plate compression deformity/Schmorl's node is seen on the left at C7. Mild bilateral neural foraminal narrowing is seen at C5-C6 and C6-C7. The odontoid process is intact with moderate articulating degenerative changes. Mild to moderate multilevel bilateral facet arthropathy is seen. The spinous processes are intact. The cervical soft tissues are unremarkable. There is no lymphadenopathy. Nodules are seen in the visualized thyroid gland measuring up to 1.7 cm (image 54, series 16). The visualized lung apices are clear. CT/CT cervical spine wo IV con IMPRESSION: 1. Mild cervical thoracic dextro scoliosis and multilevel degenerative changes without acute abnormality. 2. Thyroid nodules measuring up to 1.7 cm. This is amenable to follow-up with nonemergent dedicated thyroid ultrasound.
[2023-01-16 08:13] VITALS: BP 150/100; BP 199/114; PULSE 141; PULSE 143; RESP 18; O2SAT 96; O2SAT 98; BMI 22.0
--- NOTE | 2023-01-16 08:15 | ED_ITS ---
HPI - Fall General Chief Complaint: Fall Stated Complaint: UNWIT FALL W/R EYE LAC,FROM SNF Time Seen by Provider: 01/16/23 08:06 Source: patient, family and EMS Mode of arrival: EMS Limitations: no limitations History of Present Illness HPI Narrative: 87-year-old female presents with a fall. Patient reports slipping out of bed last night around 10 30. Patient did hit her head. She denies lose consciousness. She was under her bed since last night. She denies any nausea vomiting. She denies any focal deficits. She resides at the [facility]. Patient denies any chest pain, shortness breath, palpitations, lightheadedness. The pain that she is experiencing again is a 6/10. Does not radiate. Worse with palpation. It does not radiate. She denies any nausea vomiting. Patient had been on Eliquis for atrial fibrillation. She is currently only on a baby aspirin. She also had a recent fall and injury to the left upper extremity with a known humerus fracture. They do not want any images of these areas. Related Data Home Medications Medication Instructions Recorded Confirmed metoprolol tartrate 50 mg tablet 50 mg PO BID 12/21/20 03/31/22 apixaban 2.5 mg tablet (Eliquis) 1 tab PO BID 03/31/22 03/31/22 carbidopa 25 mg-levodopa 100 mg 1 tab PO TID 03/31/22 04/01/22 tablet furosemide 20 mg tablet 1 tab PO DAILY 03/31/22 03/31/22 Bladder Support Supplement 1 tab PO DAILY 04/01/22 04/01/22 Probiotic 1 tab PO DAILY 04/01/22 04/01/22 acetaminophen 500 mg tablet 1,000 mg PO BID 04/01/22 04/01/22 (Tylenol Extra Strength) cholecalciferol (vitamin D3) 25 25 mcg PO DAILY 04/01/22 04/01/22 mcg (1,000 unit) tablet cyanocobalamin (vitamin B-12) 1,000 mcg PO DAILY 04/01/22 04/01/22 1,000 mcg tablet Previous Rx's Medication Instructions Recorded aspirin 81 mg tablet,delayed 81 mg PO DAILY #30 tabs 07/31/21 release (Adult Aspirin Regimen) cefuroxime axetil 250 mg tablet 250 mg PO BID #7 tabs 04/02/22 Allergies Allergy/AdvReac Type Severity Reaction Status Date / Time amlodipine [Norvasc] Allergy Unknown leg Verified 08/09/21 18:16 swelling codeine [Tylenol-Codeine #3] Allergy Unknown itching Verified 08/09/21 18:16 morphine Allergy Unknown hallucinati Unverified 08/09/21 18:16 on oxycodone [OXYCODONE] Allergy Unknown AGITATION Verified 08/09/21 18:16 scallops [SCALLOPS] AdvReac Intermediate NAUSEA & Verified 08/09/21 18:16 VOMITING PMFSH Past Medical History Medical History Aortic stenosis Chest pain not due to acute coronary syndrome COVID-19 Fall History of atrial flutter HLD (hyperlipidemia) HTN (hypertension) Melanoma Mitral regurgitation Orthostatic dizziness Surgical History Hx of aortic valve replacement Hx of cholecystectomy Family History Family History Father No problems noted. Mother CVD (cardiovascular disease) Social History Social History Alcohol intake: never Patient Tobacco Use Status: Never used Tobacco Advance Directives Date on File: 04/01/22 service: No Current occupational status: retired Physical Exam Vital Signs: Vital Signs: Last Vital Signs Pulse 88 01/16/23 10:00 Resp 22 H 01/16/23 10:00 BP 150/100 H 01/16/23 08:19 Pulse Ox 96 01/16/23 10:00 O2 Del Method Room Air 01/16/23 10:00 BMI result Body Mass Index 22.0 GEN: Well developed, no acute distress, alert, oriented HEENT: Right facial trauma, significant swelling, gaping laceration to the infraorbital area, unable to assess extraocular muscles due to swelling on the right side of her face. Eyes: Normal to appearance Neck: Supple, no lymphadenopathy Respiratory: Talks in complete sentences, no respiratory distress, clear to auscultation bilaterally Cardiovascular: Tachycardia, irregularly irregular Abdomen: Soft, nontender, nondistended, no guarding, no rebound Back: No CVA tenderness Extremities: No clubbing cyanosis or edema, deformity to the left upper humerus area Neurologic: No focal neurologic deficits, cranial nerves 2-12 intact, strength is 5/5 bilaterally Skin: No rash Course Course Course Narrative: 87-year-old female with multiple chronic medical problems presents with an accidental slip/fall out of bed. She did suffer other facial trauma. She is currently not on any blood thinning medications. Patient has agreed to imaging of the CT head, cervical spine and facial bones. She does not want imaging of her left shoulder which has a clear deformity. Patient was on the ground for several hours will check a CBC, CMP, CPK to rule out rhabdomyolysis and kidney injury. Will provide patient with hydration. Will provide patient with diltiazem for significant rapid heart rate. Reevaluation(s) Reevaluation #1: I have re-evaluated the patient several times. Patient's heart rate is currentl y 90 in atrial fibrillation. I removed her cervical collar following her CT scan. She has no evidence of fractures. At some point, I will be able to attempt to tack the wound on her right cheek better. I will order metoprolol 50 mg orally now as well as her levo carbidopa as soon as we have an appropriate dose. Time: 11:47 Reevaluation #2: daughter requesting hospice consultation. Time: 13:52 Reevaluation #3: patient unable to tolerate oral meds. Will give metoprolol 5 mg iv x1. Unable to give levo-carbidopa Time: 15:45 Additional Reevaluation(s): Patient will remain in the emergency department overnight. This will be pending PT, case management and hospice evaluations. The oncoming doctor will some care at this time. Patient will be admitted as physician observation Medications Administered Discontinued Medications Generic Name Dose Route Start Last Admin Trade Name Freq PRN Reason Stop Dose Admin Acetaminophen 650 mg 01/16/23 11:03 01/16/23 11:30 Acetaminophen Supp 650 Mg Supp.Rect TX 01/16/23 11:04 650 mg ONCE ONE Administration Acetaminophen 325 mg 01/16/23 14:15 01/16/23 15:19 Acetaminophen 325 Mg Tablet PO 01/16/23 14:16 Not Given ONCE ONE Carbidopa/Levodopa 1 tab 01/16/23 11:50 01/16/23 15:19 Carbidopa/Levodopa Cr 25/100 Tablet.Er PO 01/16/23 11:51 Not Given ONCE ONE Diltiazem HCl 20 mg 01/16/23 08:21 01/16/23 09:33 Diltiazem Hcl 50 Mg/10 Ml Vial IVPUSH 01/16/23 08:22 20 mg STAT STA Administration Sodium Chloride 1,000 mls @ 999 mls/hr 01/16/23 08:30 01/16/23 11:03 Ns IV 01/16/23 09:30 Infused .Q1H1M JOSEFA Infusion Lidocaine/Epinephrine 20 ml 01/16/23 13:16 01/16/23 15:23 Lidocaine Hcl 1%/Epi 1:100,000 20 Ml Vial INFILTRATI 01/16/23 13:17 Not Given ONCE ONE Lidocaine/Epinephrine 20 ml 01/16/23 14:15 01/16/23 15:22 Lidocaine Hcl 1%/Epi 1:100,000 10 Ml Vial INFILTRATI 01/16/23 14:16 20 ml ONCE ONE Administration Metoprolol Tartrate 50 mg 01/16/23 11:46 01/16/23 15:19 Metoprolol Tartrate 50 Mg Tablet PO 01/16/23 11:47 Not Given ONCE ONE Protocol Procedures Laceration Laceration 1: Site: face Size (cm): 8 Description: irregular Depth: simple, single layer Local Anesthetic: lidocaine 1% and with epi Amount of anesthesia used (mL): 6 Pre-repair: wound explored and irrigated extensively Skin layer closed with: other (Chromic gut) Size (cm): 5-0 Number of sutures: 11 Technique: simple, interrupted Medical Decision Making Medical Decision Making MDM Narrative: 87-year-old female presents with an accidental fall. She did hit her head. Will need to rule out intracranial injury, facial fracture, C-spine injury. She is currently in a collar will remove that as quickly as possible. Patient is tachycardic secondary to her atrial fibrillation. Will give her Cardizem IV, IV fluids. She is not on blood thinning medications due to frequent falls and other issues on anticoagulation. Differential Diagnosis Differential Diagnoses: The differential diagnosis associated with the presentation includes (Subdural hematoma, epidural hematoma, subarachnoid hem orrhage, concussion, facial fractures) Admission/Observation Consideration of admission/observation: Escalation of care including admission/observation considered Lab Data MDM Lab Attestation statement: I reviewed the patient's lab results. 01/16/23 09:27 01/16/23 10:55 Labs: Lab Results 01/16/23 01/16/23 01/16/23 Range/Units 09:27 10:55 13:55 WBC 12.1 H (4.8-10.8) X10*3/uL RBC 3.32 L (4.20-5.50) X10*6/uL Hgb 9.6 L (12.0-16.0) g/dl Hct 30.5 L (37.0-47.0) % MCV 91.9 (80.0-98.0) fL MCH 28.9 (27.0-33.0) pg MCHC 31.5 (31.0-35.0) g/dl RDW 14.3 (11.0-16.0) % Plt Count 254 D (160-400) X10*3/uL MPV 9.1 L (9.4-12.3) fL Immature Gran % (Auto) 0.4 (0.0-0.4) % Neut % (Auto) 89.1 H (45-73) % Lymph % (Auto) 3.5 L (20-40) % [place] % (Auto) 6.8 (2-11) % Eos % (Auto) 0.0 (0-4) % Baso % (Auto) 0.2 (0-2) % Lymph # (Auto) 0.4 L (1.2-4.9) X10*3/uL [place] # (Auto) 0.8 (0.1-1.2) X10*3/uL Eos # (Auto) 0.0 (0.0-0.4) X10*3/uL Baso # (Auto) 0.0 (0.0-0.2) X10*3/uL Abs Immat Gran (auto) 0.05 H (0.00-0.03) X10*3/uL Absolute Neuts (auto) 10.8 H (2.0-8.3) x10*3/uL Absolute Nucleated RBC 0.000 (0.0-0.012) X10*3/uL Nucleated RBC % (auto) 0.0 (0.0-0.2) /100WBC Sodium 142 (135-145) mmol/L Potassium 4.0 (3.3-5.1) mmol/L Chloride 112 H (96-108) mmol/L Carbon Dioxide 23 (22-29) mmol/L Anion Gap 11 L (12-20) BUN 19 H (9-16) mg/dL Creatinine 0.80 (0.5-1.4) mg/dL Estim Creat Clear Calc 42.5 Estimated GFR > 60 Random Glucose 132 H (60-115) mg/dL Calcium 8.4 D (8.4-10.2) mg/dL Total Creatine Kinase 286 H (26-140) U/L COVID-19 (VERNA) Negative (Negative) COVID-19 Clin Com See Note Independent Interpretation I performed an independent interpretation of an: EKG (Atrial fibrillation heart rate 115, left axis deviation, no acute ST elevations depressions, possible LVH, nonspecific ST T wave changes) and CT Scan Independent Historian Clinical information obtained from an independent historian. History obtained from or confirmed by: EMS and Other (Daughter) Prescription Management I considered prescription management with: Pain Medication Critical Care Time Critical Care Time Critical Care Time: Yes Total Critical Care Time: 35 Attestation: Critical care time in the form of bedside assessment, reassessment, discussion with daughter, review of medical data, documentation all outside of any procedures for potentially life-threatening condition, namely, atrial fibrillation with rapid ventricular response requiring intravenous medication administration. Discharge Plan Discharge Clinical Impression: Accidental fall, Facial laceration, Acute head injury Patient Disposition: Admitted as Observation Instructions: Laceration (ED), Fall Prevention (ED), Care For Your Absorbable Stitches (ED) Prescriptions: No Action furosemide 20 mg tablet 1 tab PO DAILY carbidopa-levodopa 25-100 mg tablet 1 tab PO TID Eliquis 2.5 mg tablet 1 tab PO BID cyanocobalamin (vitamin B-12) 1,000 mcg Tablet 1,000 mcg PO DAILY cholecalciferol (vitamin D3) 25 mcg (1,000 unit) Tablet 25 mcg PO DAILY Bladder Support Supplement 1 tab PO DAILY Probiotic 1 tab PO DAILY acetaminophen [Tylenol Extra Strength] 500 mg Tablet 1,000 mg PO BID cefuroxime axetil 250 mg tablet 250 mg PO BID Qty: 7 0RF metoprolol tartrate 50 mg tablet 50 mg PO BID aspirin [Adult Aspirin Regimen] 81 mg tablet,delayed release (DR/EC) 81 mg PO DAILY Qty: 30 11RF Referrals: Physician,None [Primary Care Provider] -
[2023-01-16 08:19] VITALS: BP 150/100; BP 199/114; PULSE 141; PULSE 143; RESP 18; O2SAT 98
--- NOTE | 2023-01-16 08:21 | ECG_ITS ---
Test Reason : AFIB Blood Pressure : / mmHG Vent. Rate : 115 BPM Atrial Rate : 000 BPM P-R Int : 000 ms QRS Dur : 106 ms QT Int : 350 ms P-R-T Axes : 000 -35 067 degrees QTc Int : 484 ms Atrial fibrillation with rapid ventricular response Left axis deviation Minimal voltage criteria for LVH, may be normal variant ( Burns product ) Nonspecific ST abnormality Abnormal ECG When compared with ECG of 31-MAR-2022 19:09, Atrial fibrillation with rapid ventricular response has replaced Normal sinus rhythm Referred By: Skip Garcia Electronically Signed By:AMANDA SPRING MD
--- OUTSIDE RECORDS SUMMARY | 2023-01-16 08:42 | XMS_ITS | Continuity of Care Document ---
Author Name Unknown Organization [facility] [employer]onal[employer]a Dee [employer] [facility] Address [address], [address] [place] [address]- Care Team Providers Care Chain Link Fence Installer Name Role Phone Tory FERRO, Gray Primary Care Physician [phone] [id number] Date(s): 06/08/20 - 07/08/20 [facility] [employer] [facility] [address], [address] [place] [address]- [facility] Allergies, Adverse Reactions, Alerts Substance Reaction Severity Status codeine nausea C/O: itching Active morphine hallucination Active Other Food Allergy Crab Scallop Active Medications aspirin 81 mg oral delayed release tablet 1 tablet = 81 mg, By Mouth, Daily, # 30 tablet, 0 Refills, Maintenance, 10/29/15 13:38:57, EC Tablet Start Date: 10/29/15 Status: Ordered atorvastatin 40 mg oral tablet 1 tablet = 40 mg, By Mouth, Daily at bedtime, # 30 tablet, 0 Refills, Maintenance, 10/04/15 11:25:23 EST, Tablet Start Date: 10/04/15 Status: Ordered Estrace Vaginal Cream 0.1 mg/g = 1 Gm, Vaginally, Daily at bedtime, 1 GM vaginally at bedtime for for 2 weeks and then 1 GM vaginally at bedtime x 2/week, # 42.5 Gm, 0 Refills, Maintenance, 06/08/20 12:07:00 EDT, [id number], 154.2, cm, 05/24/20 11:35:00 EDT, Height, 60.8, k... Start Date: 06/08/20 Status: Ordered Estring 2 mg vaginal ring 1 each = 2 mg, Vaginally, Every 3 months, # 1 each, 3 Refills, Maintenance, 06/05/20 11:22:00 EDT, [facility], 154.2, cm, 05/24/20 11:35:00 EDT, Height, 60.8, kg, 05/24/20 11:35:00EDT, Dry Weight Start Date: 06/05/20 Status: Ordered metoprolol 100 mg oral tablet 1 tablet = 100 mg, By Mouth, 2 times a day, # 60 tablet, 0 Refills, Maintenance, 10/29/15 13:40:45,Tablet Start Date: 10/29/15 Stop Date: 11/28/15 Status: Ordered Problem List Condition Effective Dates Status Health Status Inform ant Aortic stenosis(Confirmed) Active CAD (coronary artery disease)(Confirmed) Active Female bladder prolapse(Confirmed) Active Ex-cigarette smoker, 09/18 ppd X10 years, quit(Confirmed) Active GERD (gastroesophageal reflu x disease)(Confirmed) Active Bladder prolapse, female, acquired(Confirmed) Active Right Cataract extraction status(Confirmed) 07/19/15 Active HLD (hyperlipidemia)(Confirmed) Active HTN (hypertension)(Confirmed) Active Social History Social History Type Response Smoking Status Former smoker; Tobac co user in household: No entered on: 10/20/15 Sex
--- OUTSIDE RECORDS SUMMARY | 2023-01-16 08:42 | XMS_ITS | Continuity of Care Document ---
Author Name Unknown Organization [facility] Address [address], [address] [place] [address]- Care Team Providers Care Bench Examiner Name Role Phone Tory FERRO, Gray Primary Care Physician [phone] [id number] Date(s): 06/02/20 - 07/02/20 [facility] [employer] [facility] [address] [place] [address]- [facility] Allergies, Adverse Reactions, Alerts Substance Reaction Severity [...]
--- OUTSIDE RECORDS SUMMARY | 2023-01-16 08:42 | XMS_ITS | Continuity of Care Document ---
Author Name Unknown Organization [facility] [employer] Address [address], [address] [place] [address]- Care Team Providers Care Financial Services Consultant Name Role Phone Tory FERRO, Gray Primary Care Physician [phone] [id number] Date(s): 10/10/20 - 11/09/20 [facility] [address], [address] [place], [place] [address] Allergies, Adverse Reactions, Alerts Substance Reaction Severity [...]
--- OUTSIDE RECORDS SUMMARY | 2023-01-16 08:42 | XMS_ITS | Continuity of Care Document ---
Author Name Unknown Organization [facility] [employer] Address [address], [address] [place] [address]- Care Team Providers Care Failure Analysis Engineer Name Role Phone Tory FERRO, Gray Primary Care Physician [phone] [id number] Date(s): 06/22/19 - 10/20/19 [facility] Daily Dealy [facility] [facility] [address], [address] [place] [address]- Attending Physician: Rut Hernandez NP Admitting Physician: Rut Hernandez NP Referring Physician: Rut Hernandez NP Allergies, Adverse Reactions, Alerts Substance Reaction Severity [...] EST, Tablet Start Date: 10/04/15 Status: Ordered metoprolol 100 mg oral tablet [...]
--- OUTSIDE RECORDS SUMMARY | 2023-01-16 08:42 | XMS_ITS | Continuity of Care Document ---
Author Name Unknown Organization [facility] Dee n[employer] [facility] Address [address] [place] [address], [address] [place] [address]- Care Team Providers Care Assembler Brazer Name Role Phone Tory FERRO, Gray Primary Care Physician [phone] Encounter [facility] NBR [id number] Date(s): 11/26/21 - 12/26/21 [facility] Dunn[employer] [facility] [address] [place] [address], [address] [place] [address]- Allergies, Adverse Reactions, Alerts Substance Reaction Severity Status codeine nausea C/O: itching Active morphine hallucination Active Other Food Allergy Crab Scallop Active Medications aspirin 81 mg oral delayed release tablet 1 tablet = 81 mg, By Mouth, Daily, # 30 tablet, 0 Refills, Maintenance, 10/29/15 13:38:57, EC Tablet Start Date: 10/29/15 Status: Ordered Eliquis 2.5 mg oral tablet 1 tablet = 2.5 mg, By Mouth, 2 times a day, # 60 tablet, 0 Refills, Maintenance, 08/16/21 15:15:00 EST, Tablet, Partial fill upon patient request if the prescription is for a schedule II opioid drug. Start Date: 08/16/21 Status: Ordered Estring 2 mg vaginal ring 1 each = 2 mg, Vaginally, Every 3 months, # 1 each, 3 Refills, Maintenance, 10/26/21 13:43:00 EST, [id number], 154.2, cm, 08/16/21 15:12:00 EST, Height, 59.5, kg, 08/16/21 15:12:00 EST, Dry Weight Start Date: 10/26/21 Status: Ordered metoprolol 100 mg oral tablet 1 tablet = 100 mg, By Mouth, 2 times a day, # 60 tablet, 0 Refills, Maintenance, 10/29/15 13:40:45,Tablet Start Date: 10/29/15 Stop Date: 11/28/15 Status: Ordered Myrbetriq 25 mg oral tablet, extended release 1 tablet = 25 mg, By Mouth, Daily, # 30 tablet, 5 Refills, Maintenance, 08/16/21 15:43:00 EST, [facility] #[id number], Partial fill upon patient request if the prescription is for a schedule II opioid drug., 154.2, cm, 08/16/21 15:12:00 EST, Height, 59.5,... Start Date: 08/16/21 Status: Ordered Problem List Condition Effective Dates [...]
--- OUTSIDE RECORDS SUMMARY | 2023-01-16 08:42 | XMS_ITS | Continuity of Care Document ---
Author Name Unknown Organization [facility] [place] [employer] Dee [facility] Address [address], [address] [place] [address]- Care Team Providers Care Digital Content Specialist Name Role Phone Tory FERRO, Gray Primary Care Physician [phone] [id number] Date(s): 06/08/20 - 07/08/20 [facility] [employer] [facility] [address] [place] [address]- [facility] Allergies, Adverse Reactions, Alerts Substance Reaction Severity [...]
--- OUTSIDE RECORDS SUMMARY | 2023-01-16 08:42 | XMS_ITS | Continuity of Care Document ---
Author Name Unknown Organization [facility] ter Address [address] [place] [address]- Care Team Providers Care Ton Cylinder Inspector Name Role Phone Gray Spears MD Primary Care Physician [phone] [id number] Date[facility]/04/22 - 04/09/[address] [address]- Encounter Diagnosis Acute COVID-19(Final) - 04/04/22 Weakness(Final) - 04/04/22 Anemia(Final) - 04/04/22 Anemia(Final) - 04/04/22 Discharge Disposition: A-Transfer SNF Attending Physician: Osmar Fulton MD Admitting Physician: Hilton Cao MD Referring Physician: Not on Staff, Referring MD Allergies, Adverse Reactions, Alerts Substance Reaction Severity Status codeine nausea C/O: itching Active morphine hallucination Active Other Food Allergy Crab Scallop Active Immunizations Given and Recorded Vaccine Date Status Refusal Reason tetanus/diphtheria/pertussis, acel(Tdap) 08/05/21 Recorded tetanus/diphtheria/pertussis, acel(Tdap) 02/25/19 Recorded SARS-CoV-2 (COVID-19) mRNA BNT-162b2 vac 07/04/21 Recorded SARS-CoV-2 (COVID-19) mRNA BNT-162b2 vac 10/15/20 Recorded SARS-CoV-2 (COVID-19) mRNA BNT-162b2 vac 09/24/20 Recorded influenza virus vaccine, inactivated 06/21/21 Gold rded influenza virus vaccine, inactivated 06/25/20 Gold rded influenza virus vaccine, inactivated 06/14/20 Gold rded influenza virus vaccine, inactivated 06/15/19 Gold rded influenza virus vaccine, inactivated 05/25/18 Gold rded influenza virus vaccine, inactivated 05/30/17 Gold rded influenza virus vaccine, inactivated 06/11/16 Gold rded influenza virus vaccine, inactivated 06/16/14 Gold rded influenza virus vaccine, inactivated 06/14/13 Gold rded influenza virus vaccine, inactivated 06/25/11 Gold rded zoster vaccine, inactivated 03/13/18 Recorded pneumococcal 13-valent vaccine 05/13/17 Recorded Medications carbidopa-levodopa 25 mg-100 mg oral tablet 1 tablet, By Mouth, 3 times a day, 0 Refills, Maintenance, 04/04/22 14:16:00 EDT, Partial fill uponpatient request if the prescription is for a schedule II opioid drug. Start Date: 04/04/22 Status: Ordered Docusate/Senna Tablet 1 tablet, By Mouth, 2 times a day, PRN Constipation, 0 Refills, Maintenance, 04/09/22 13:47:00 EDT,Tablet, Partial fill upon patient request if the prescription is for a schedule II opioid drug. Start Date: 04/09/22 Status: Ordered Eliquis 2.5 mg oral tablet 1 tablet = 2.5 mg, By Mouth, 2 times a day, # 60 tablet, 0 Refills, Maintenance, 08/16/21 15:15:00 EST, Tablet, Partial fill upon patient request if the prescription is for a schedule II opioid drug. Start Date: 08/16/21 Status: Ordered Furosemide = 20 mg, By Mouth, Daily, 0 Refills, Maintenance, 04/04/22 21:19:00 EDT, Partial fill upon patient request if the prescription is for a schedule II opioid drug. Start Date: 04/04/22 Status: Ordered iron polysaccharide 150 mg oral capsule = 150 mg, By Mouth, Daily, 0 Refills, Maintenance, 04/09/22 13:47:00 EDT, Capsule, Partial fill upon patient request if the prescription is for a schedule II opioid drug. Start Date: 04/09/22 Status: Ordered melatonin 3 mg oral tablet = 3 mg, By Mouth, Daily at bedtime, PRN Insomnia, 0 Refills, Maintenance, 04/09/22 13:47:00 EDT, Tablet, Partial fill upon patient request if the prescription is for a schedule II opioid drug. Start Date: 04/09/22 Status: Ordered metoprolol 50 mg oral tablet 75 mg, 1.5, tablet, By Mouth, 2 times a day, # 90 tablet, Refills 0, Tot. Refills 0, Maintenance, 04/09/22 15:04:00 EDT, Do Not Route, Partial fill upon patient request if the prescription is for a schedule II opioid drug. Start Date: 04/09/22 Stop Date: 05/09/22 Status: Ordered Vitamin C Tablet = 500 mg, By Mouth, Daily, 0 Refills, Maintenance, 04/09/22 13:47:00 EDT, Tablet, Partial fill uponpatient request if the prescription is for a schedule II opioid drug. Start Date: 04/09/22 Status: Ordered Problem List Condition Effective Dates Status Health Status Inform ant Aortic stenosis(Confirmed) Active CAD (coronary artery disease)(Confirmed) Active COVID-19(Confirmed) 1 04/09/22 Active COVID-19(Confirmed) 2 04/09/22 Active Female bladder prolapse(Confirmed) Active Ex-cigarette smoker, 09/18 ppd X10 years, quit(Confirmed) Active GERD (gastroesophageal reflu x disease)(Confirmed) Active Bladder prolapse, female, acquired(Confirmed) Active Right Cataract extraction status(Confirmed) 07/19/15 Active HLD (hyperlipidemia)(Confirmed) Active HTN (hypertension)(Confirmed) Active 1Problem added by Discern Expert 2Problem added by Discern Expert Results Radiology Reports * Exam Date Time Procedure Performing Provider Status 04/04/22 3:05 PM Chest Single Frontal View Stanislaw Smith; Auth (Verified) Notes: (Chest Single Frontal View) Reason For Exam: COVID +;Shortness of Breath RESULT: Chest Single Frontal View Chest Single Frontal View Hx of Present Illness: from SNF, increasing generalized weakness x2 weeks. Diagnosed with covid Sun7 17. Recent UTI; Reason: Shortness of Breath; COVID +; Clinical Question(s): Pneumonia COMPARISON: 10/25/2015 FINDINGS: LINES AND TUBES: None. LUNGS AND PLEURA: Clear lungs. Normal pulmonary vascularity. No pleural effusion. No pneumothorax. HEART, MEDIASTINUM AND ROMAN: Heart is normal in size. Aorta is calcified. BONES AND SOFT TISSUES: No acute abnormality. Status post median sternotomy. IMPRESSION: No acute abnormality. WSN: [id number] Ordering Physician: Bernadine Olvera Dictated By: Augustine Alexandra MD Dictated Date/Time: 04/04/22 4:00 pm Reviewed By: Augustine Alexandra MD Signed By: Augustine Alexandra MD Signed Date/Time: 04/04/22 4:00 pm Transcribed By: KJ Transcribed Date/Time: 04/04/22 3:59 pm * Exam Date Time Procedure Performing Provider Status 04/04/22 3:05 PM Knee 1 or 2 Views Left Susanna Smith le; Auth (Verified) Notes: (Knee 1 or 2 Views Left) Reason For Exam: Pain RESULT: Knee 1 or 2 Views Left Knee 1 or 2 Views Left, 1 views Hx of Present Illness: from SNF, increasing generalized weakness x2 weeks. diagnosed with covid Sun7 17. Recent UTI; Reason: Pain; Clinical Question(s): Fracture COMPARISON: Femur from 04/04/2022. FINDINGS: There is no evidence of acute or healing fracture, dislocation or bone lesion. Mild medial compartment joint space narrowing. No evidence of joint effusion. IMPRESSION: Mild degenerative change. No evidence of acute osseous abnormality. WSN: [id number] Ordering Physician: Bernadine Olvera Dictated By: Dalton Montgomery MD Dictated Date/Time: 04/04/22 3:48 pm Reviewed By: Dalton Montgomery MD Signed By: Dalton Montgomery MD Signed Date/Time: 04/04/22 3:48 pm Transcribed By: KJ Transcribed Date/Time: 04/04/22 3:48 pm * Exam Date Time Procedure Performing Provider Status 04/04/22 3:05 PM XR Femur 2 Views Left Ling Smith; Auth (Verified) Notes: (XR Femur 2 Views Left) Reason For Exam: mid femur pain, recent fall;Pain RESULT: Femur 2 Views Left Femur 2 Views Left, 2 views Hx of Present Illness: from SNF, increasing generalized weakness x2 weeks. diagnosed with covid Sun7 17. Recent UTI; Reason: Pain; mid femur pain, recent fall; Clinical Question(s): Fracture COMPARISON: None. FINDINGS: No fracture, dislocation or bone lesion. Mild degenerative changes of the left hip and left knee. Normal soft tissues. IMPRESSION: No evidence of acute osseous abnormality. WSN: [id number] Ordering Physician: Bernadine Olvera Dictated By: Dalton Montgomery MD Dictated Date/Time: 04/04/22 3:47 pm Reviewed By: Dalton Montgomery MD Signed By: Dalton Montgomery MD Signed Date/Time: 04/04/22 3:47 pm Transcribed By: KJ Transcribed Date/Time: 04/04/22 3:47 pm * Exam Date Time Procedure Performing Provider Status 04/04/22 3:05 PM Pelvis 1 or 2 Views Leah Smith; Auth (Verified) Notes: (Pelvis 1 or 2 Views) Reason For Exam: Pain RESULT: Pelvis 1 or 2 Views Pelvis 1 or 2 Views HX OF PRESENT ILLNESS: from SNF, increasing generalized weakness x2 weeks. diagnosed with covid Sun7 17. Recent UTI; Reason: Pain; Clinical Question(s): Fracture COMPARISON: None. FINDINGS: No acute fracture or dislocation. Status post ORIF of the right femoral neck. Mild degenerative changes of both hips. There are atherosclerotic vascular calcifications. IMPRESSION: No evidence of acute osseous abnormality. WSN: [id number] Ordering Physician: Bernadine Olvera Dictated By: Dalton Montgomery MD Dictated Date/Time: 04/04/22 3:47 pm Reviewed By: Dalton Montgomery MD Signed By: Dalton Montgomery MD Signed Date/Time: 04/04/22 3:47 pm Transcribed By: KJ Transcribed Date/Time: 04/04/22 3:46 pm Vital Signs Most recent to oldest [Reference Range]: 1 2 3 Height 155 cm (04/09/22 4:10 AM) 155 cm (04/09/22 12:39 AM) 155 cm (04/08/22 8:22 PM) Weight 60.6 kg (04/04/22 10:42 PM) 60.6 kg (04/04/22 10:38 PM) 59 kg (04/04/22 3:16 PM) Oxygen Saturation [94-100 %] 100 % (04/09/22 11:00 AM) 100 % (04/09/22 7:00 AM) 100 % (04/09/22 4:10 AM) Pulse Rate [55-90 bpm] 82 bpm (04/09/22 11:00 AM) 87 bpm (04/09/22 9:59 AM) 72 bpm (04/09/22 7:00 AM) Body Mass Index [18.5-24.99] 25.22 *H* (04/04/22 10:42 PM) 25.22 *H* (04/04/22 10:38 PM) 24.56 (04/04/22 3:16 PM) Blood Pressure [90-138/55-84 mm Hg] 175/75mm Hg *H* (04/09/22 11:00 AM) 159/57mm Hg *H* (04/09/22 9:59 AM) 154/58mm Hg *H* (04/09/22 7:00 AM) Respiratory Rate [16-30 br/min] 16 br/min (04/09/22 11:00 AM) 15 br/min *L* (04/09/22 7:00 AM) 15 br/min *L* (04/09/22 4:10 AM) Temperature [96.8-100.4 DegF] 98.3 DegF (04/09/22 11:00 AM) 98.3 DegF (04/09/22 7:00 AM) 98 DegF (04/08/22 8:22 PM) Mode of Delivery (Oxygen) Room air (04/09/22 11:00 AM) Room air (04/09/22 7:00 AM) Room air (04/09/22 4:10 AM) Blood pressure sites Arm, right (04/09/22 11:00 AM) Arm, right (04/09/22 9:59 AM) Arm, left (04/09/22 7:00 AM) Temperature Route Oral (04/09/22 11:00 AM) Oral (04/09/22 7:00 AM) Oral (04/08/22 8:22 PM) Dry Weight 60.6 kg (04/04/22 10:42 PM) 59 kg (04/04/22 3:16 PM) 59 kg (04/04/22 1:07 PM) Weight Obtained Via Bed scale (04/04/22 10:42 PM) Bed scale (04/04/22 10:38 PM) Dry Weight Obtained Via Patient/family s tated (04/04/22 1:07 PM) Social History Social History Type Response Smoking Status Former smoker; Tobac co user in household: No entered on: 10/20/15 Sex
--- OUTSIDE RECORDS SUMMARY | 2023-01-16 08:42 | XMS_ITS | Continuity of Care Document ---
Author Name Unknown Organization [facility] [place] [employer] Address [address], [address] [place] [address]- Care Team Providers Care Buyer Assistant Name Role Phone Tory FERRO, Gray Primary Care Physician [phone] [facility] Date(s): 10/12/19 - 10/22/19 [facility] [employer] [facility] [address], [address]th [place] [address]- Attending Physician: Nu Wheat Admitting Physician: Nu Wheat Referring Physician: AdmtrNu Allergies, Adverse Reactions, Alerts Substance Reaction Severity [...]
--- OUTSIDE RECORDS SUMMARY | 2023-01-16 08:42 | XMS_ITS | Continuity of Care Document ---
Author Name Unknown Organization [facility] Luiz nBizaks [facility] Address [address], [address]t [place] [address]- Care Team Providers Care Wood Cabinetmaker Name Role Phone Tory FERRO, Gray Primary Care Physician [phone] [id number] Date(s): 02/28/21 - 03/30/21 [facility] Garneralysa DunnBizaks [facility] [address], [address] [place], [place] [address] Attending Physician: Nu Wheat Admitting Physician: AdmtrNu Referring Physician: Admtr, Nu Allergies, Adverse Reactions, Alerts Substance Reaction Severity [...] EST, Tablet Start Date: 10/04/15 Status: Ordered Estring 2 mg vaginal ring [...]
--- OUTSIDE RECORDS SUMMARY | 2023-01-16 08:42 | XMS_ITS | Continuity of Care Document ---
Author Name Unknown Organization [facility] Address [address] [place] [address], [address] [place] [address]- Care Team Providers Care Senior Director Finance Name Role Phone Gray Spears MD Primary Care Physician [phone] [id number] Date(s): 08/17/21 - 12/21/21 [facility] [employer] [facility] [address], [address] [place] [address]- Attending Physician: Shayla Francois MD Admitting Physician: Shayla Francois MD Referring Physician: Gray Spears MD Allergies, Adverse Reactions, Alerts Substance Reaction Severity Status codeine nausea C/O: itching Active Other Food Allergy Crab Scallop Active morphine hallucination Active Medications aspirin 81 mg oral delayed [...] each, 3 Refills, Maintenance, 10/26/21 13:43:00 EST, [id number], 154.2, cm, 08/16/21 15:12:00 EST, Height, [...] tablet, 5 Refills, Maintenance, 08/16/21 15:43:00 EST, [id number], Partial fill upon patient request if the [...]
--- OUTSIDE RECORDS SUMMARY | 2023-01-16 08:42 | XMS_ITS | Continuity of Care Document ---
Author Name Unknown Organization [facility] Dee nBranders[facility]com[facility] Address [address], [address]t [place] [address]- Care Team Providers Care Sprinkler Driver Name Role Phone Tory FERRO, Gray Primary Care Physician [phone] [id number] Date(s): 08/07/21 - 09/06/21 [facility] DunnBranders.coms [facility] [address], [address] [place], [place] [address] Allergies, Adverse Reactions, Alerts Substance Reaction [...] months, # 1 each, 3 Refills, Maintenance, 06/13/21 11:10:00 EDT, [facility], 154.2, cm, 11/22/20 10:37:00 EST, Height, 60.8, kg, 05/24/20 11:35:00EDT, Dry Weight Start Date: 06/13/21 Status: Ordered metoprolol 100 mg oral tablet 1 tablet = 100 mg, By Mouth, 2 times a day, # 60 tablet, 0 Refills, Maintenance, 10/29/15 13:40:45,Tablet Start Date: 10/29/15 Stop Date: 11/28/15 Status: Ordered Myrbetriq 25 mg oral tablet, extended release 1 tablet = 25 mg, By Mouth, Daily, # 30 tablet, 5 Refills, Maintenance, 08/16/21 15:43:00 EST, [facility]/pharmacy #[id number], Partial fill upon patient request if the [...]
--- OUTSIDE RECORDS SUMMARY | 2023-01-16 08:42 | XMS_ITS | Continuity of Care Document ---
Author Name Unknown Organization [facility] Meridianalysa Dee nRecruitTalks [facility] Address [address] [place] [address], [address] [place] [address]- Care Team Providers Care Center Machine Set Up Operator Name Role Phone Gray Spears MD Primary Care Physician [phone] [id number] Date(s): 06/13/21 - 10/05/21 [facility] ConfortVisuel MonaRecruitTal[employer] [facility] [address], [address] [place], [place] [address] Attending Physician: Rut Hernandez NP Admitting Physician: Rut Hernandez NP Referring Physician: Gray Spears MD Allergies, Adverse [...] cm, 11/22/20 10:37:00 EST, Height, 60.8, kg, 09/09/20 11:35:00EDT, Dry Weight Start Date: 06/13/21 Status: [...] tablet, 5 Refills, Maintenance, 08/16/21 15:43:00 EST, [facility]/pharm[facility] #[id number], Partial fill upon patient request if [...]
--- OUTSIDE RECORDS SUMMARY | 2023-01-16 08:43 | XMS_ITS | Continuity of Care Document ---
Author Name Unknown Organization [facility] Address [address], 4t [place] [address]- Care Team Providers Care Radar Systems Engineer Name Role Phone Tory FERRO, Gray Primary Care Physician [phone] [facility] [id number] Date(s): 05/08/21 - 06/07/21 [facility] [place] WomenWANTED [employer] [facility] [address], [address] [place], [place] [address] Allergies, Adverse Reactions, Alerts Substance Reaction Severity [...]
--- OUTSIDE RECORDS SUMMARY | 2023-01-16 08:43 | XMS_ITS | Continuity of Care Document ---
Author Name Unknown Organization [facility] Erika [employer] Address [address], 4t [place] [address]- Care Team Providers Care Reclamation Engineer Name Role Phone Gray Spears MD Primary Care Physician [phone] [id number] Date(s): 08/24/19 - 12/12/19 [facility] [employer] [facility] [address], [address]th [place] [address]- Attending Physician: Nathalie Jones MD Admitting Physician: Nathalie Jones MD Referring Physician: Gray Spears MD Allergies, [...]
--- OUTSIDE RECORDS SUMMARY | 2023-01-16 08:43 | XMS_ITS | Continuity of Care Document ---
Author Name Unknown Organization [facility] [place] Dee nS[employer]its [facility] Address [address], [address] [place] [address]- Care Team Providers Care Cargo Services Coordinator Name Role Phone Tory FERRO, Gray Primary Care Physician [phone] [facility] [id number] Date(s): 04/14/20 - 05/14/20 [facility] [employer] [facility] [address], [address] [place] [address]- [facility] Allergies, Adverse Reactions, Alerts Substance Reaction Severity [...] Status: Ordered Estrace Vaginal Cream 0.1 mg/g See Instructions, 1 gram Vaginally at bedtime twice per week, # 42 Gm, 4 Refills, Maintenance, 02/02/20 16:07:00 EDT, [facility], Substitutions ok, 154.2, cm, 01/20/20 14:17:00 EDT, Height, 63.5, kg, 01/20/20 14:17:00 EDT, Dry Weight Start Date: 02/02/20 Status: Ordered metoprolol 100 mg oral tablet [...]
--- OUTSIDE RECORDS SUMMARY | 2023-01-16 08:43 | XMS_ITS | Continuity of Care Document ---
Author Name Unknown Organization [facility] Erika Dee n's [facility] Address [address] [place] [address], [address] [place] [address]- Care Team Providers Care Director Of Vocational Guidance Name Role Phone Tory FERRO, Gray Primary Care Physician [phone] [facility] [id number] Date(s): 08/27/21 - 09/26/21 [facility] Erikaalysa DunnUNILOC Corp PTYs [facility] [address], [address] [place] [address]- Allergies, Adverse Reactions, Alerts Substance Reaction Severity [...] tablet, 5 Refills, Maintenance, 08/16/21 15:43:00 EST, [facility]/pharmacy #[id number], Partial fill upon patient request if the [...]
--- OUTSIDE RECORDS SUMMARY | 2023-01-16 08:43 | XMS_ITS | Continuity of Care Document ---
Author Name Unknown Organization [facility] Address [address] [place] [address], [address] [place] [address]- Care Team Providers Care Rehabilitation Technician Name Role Phone Tory FERRO, Gray Primary Care Physician [phone] [facility] [id number] Date(s): 10/26/21 - 11/25/21 [facility] [place] [address], [address] [place], [place] [address] Allergies, Adverse Reactions, Alerts Substance Reaction Severity [...] each, 3 Refills, Maintenance, 10/26/21 13:43:00 EST, [facility]/pharmacy #[id number], 154.2, cm, 08/16/21 15:12:00 EST, Height, [...] tablet, 5 Refills, Maintenance, 08/16/21 15:43:00 EST, [facility]/pharmacy #[id number], Partial fill upon patient request if the [...]
--- OUTSIDE RECORDS SUMMARY | 2023-01-16 08:43 | XMS_ITS | Continuity of Care Document ---
Author Name Unknown Organization [facility] Hestandalysa Dee nTwijectors [facility] Address [address], [address] [place] [address]- Care Team Providers Care Marketing Project Lead Name Role Phone Tory FERRO, Gray Primary Care Physician [phone] [id number] Date(s): 04/11/20 - 05/17/20 [facility] [employer] MonaTwijectors [facility] [address], [address] [place] [address]- [facility] Attending Physician: Not on Staff, Attending MD Referring Physician: Mary DE LEON, Rut Soriano Allergies, Adverse Reactions, Alerts Substance Reaction Severity [...]
--- OUTSIDE RECORDS SUMMARY | 2023-01-16 08:43 | XMS_ITS | Continuity of Care Document ---
Author Name Unknown Organization [facility] Guadalupealysa Dee n[employer] [facility] Address [address], [address] [place] [address]- Care Team Providers Care Discharge Specialist Name Role Phone Tory FERRO, Gray Primary Care Physician [phone] Encounter [facility] Date(s): 01/20/20 - 02/19/20 [facility] [employer] WomenFastmobiles [facility] [address], [address]th [place] [address]- [facility] Attending Physician: Admtr, [id number] Admitting Physician: Admtr, Juan8 Referring Physician: Admtr, [id number] Allergies, Adverse Reactions, Alerts Substance Reaction Severity [...]
--- OUTSIDE RECORDS SUMMARY | 2023-01-16 08:43 | XMS_ITS | Continuity of Care Document ---
Author Name Unknown Organization [facility] Address [address] [place] [address], [address] [place] [address]- Care Team Providers Care Vat Washer Name Role Phone Tory FERRO, Gray Primary Care Physician [phone] [facility] [id number] Date(s): 09/12/21 - 10/12/21 [facility] Eleelealysa DunnBadges [facility] [address] [place] [address], [address] [place], [place] [address] Allergies, Adverse Reactions, Alerts Substance Reaction [...] tablet, 5 Refills, Maintenance, 08/16/21 15:43:00 EST, [facility]/pharmacy #[id number], Partial fill upon patient request if the [...]
--- OUTSIDE RECORDS SUMMARY | 2023-01-16 08:43 | XMS_ITS | Continuity of Care Document ---
Author Name Unknown Organization [facility] [place] Hillsalys[place] Dee nStormPinss [facility] Address [address], [address] [place] [address]- Care Team Providers Care Nail Machine Operator Name Role Phone Tory FERRO, Gray Primary Care Physician [phone] [id number] Date(s): 04/12/20 - 05/12/20 [facility] [employer] WomenStormPinss [facility] [address], [address] [place] [address]- [facility] Allergies, Adverse Reactions, [...]
--- OUTSIDE RECORDS SUMMARY | 2023-01-16 08:43 | XMS_ITS | Continuity of Care Document ---
Author Name Unknown Organization [facility] Golcondaalysa Dee n[employer] [facility] Address [address] [place] [address], [address] [place] [address]- Care Team Providers Care Lactation Specialist Name Role Phone Gray Spears MD Primary Care Physician [phone] [facility] [id number] Date(s): 11/14/21 - 01/02/22 [facility] Erikaalysa DunnRocket Lawyers [facility] [address], [address] [place], [place] [address] Attending Physician: Nathalie Jones MD Admitting Physician: [...] tablet, 5 Refills, Maintenance, 08/16/21 15:43:00 EST, [facility]/pharmacy #[id number], Partial fill upon patient request if [...]
--- OUTSIDE RECORDS SUMMARY | 2023-01-16 08:43 | XMS_ITS | Continuity of Care Document ---
Author Name Unknown Organization [facility] Erika Dee [email or web address] [facility] Address [address], [address] [place] [address]- Care Team Providers Care Wheel Presser Name Role Phone Tory FERRO, Gray Primary Care Physician [phone] [id number] 04/10/20 - 05/10/20 [facility] [employer]rika [email or web address] [address], [address] [place] [address]- [facility] Allergies, Adverse Reactions, Alerts Substance [...]
--- OUTSIDE RECORDS SUMMARY | 2023-01-16 08:43 | XMS_ITS | Continuity of Care Document ---
Author Name Unknown Organization [facility] Erikaalysa Dee [employer] [facility] Address [address] [place] [address], [address] [place] [address]- Care Team Providers Care Channeling Machine Operator Name Role Phone Tory FERRO, Gray Primary Care Physician [phone] [id number] Date(s): 11/14/21 - 12/14/21 [facility] Erikaalysa DunnDealstru[employer] [facility] [address] [place] [address], [address] [place] [address]- Allergies, Adverse Reactions, Alerts Substance Reaction Severity [...] each, 3 Refills, Maintenance, 10/26/21 13:43:00 EST, [facility]/pharmacy #[id number], 154.2, cm, 08/16/21 15:12:00 EST, [...] tablet, 5 Refills, Maintenance, 08/16/21 15:43:00 EST, [facility]/pharmacy #[id number], Partial fill upon patient request if the [...]
--- OUTSIDE RECORDS SUMMARY | 2023-01-16 08:43 | XMS_ITS | Continuity of Care Document ---
Author Name Unknown Organization [facility] [employer] Address [address], [address] [place] [address]- Care Team Providers Care Car Park Attendant Name Role Phone Tory FERRO, Gray Primary Care Physician [phone] [id number] Date(s[facility] 08/01/21 - 08/31/21 [facility] [address], [address] [place], [place] [address] Allergies, Adverse Reactions, Alerts Substance Reaction Severity [...] 5 Refills, Maintenance, 08/16/21 15:43:00 EST, [facility]/pharmacy #[id number], Partial fill upon patient request if the [...]
--- OUTSIDE RECORDS SUMMARY | 2023-01-16 08:43 | XMS_ITS | Continuity of Care Document ---
Author Name Unknown Organization [facility] Address [address], [address] [place] [address]- Care Team Providers Care Rpg Developer Name Role Phone Tory FERRO, Gray Primary Care Physician [phone] [id number] Date(s): 08/13/21 - 09/12/21 [facility] [address], [address] [place], [place] [address] Allergies, Adverse Reactions, Alerts Substance [...] tablet, 5 Refills, Maintenance, 08/16/21 15:43:00 EST, [facility]/pharmacy #[id number], Partial fill upon patient request if the [...]
--- OUTSIDE RECORDS SUMMARY | 2023-01-16 08:43 | XMS_ITS | Continuity of Care Document ---
Author Name Unknown Organization [facility] Address [address] [place] [address], [address] [place] [address]- Care Team Providers Care Blood Bank Coordinator Name Role Phone Tory FERRO, Gray Primary Care Physician [phone] Encounter [facility] [id number] Date(s): 09/17/21 - 10/17/21 [facility] Erikaalysa DunnViptables [facility] [address] [place] [address], [address] [place], [place] [address] Allergies, Adverse Reactions, Alerts Substance Reaction Severity [...] tablet, 5 Refills, Maintenance, 08/16/21 15:43:00 EST, [facility]/pharmacy #[id number], Partial fill upon patient request if the [...]
--- OUTSIDE RECORDS SUMMARY | 2023-01-16 08:43 | XMS_ITS | Continuity of Care Document ---
Author Name Unknown Organization [facility] Address [address] [place] [address]- Care Team Providers Care Microbiology Lab Analyst Name Role Phone Gray Spears MD Primary Care Physician [phone] [place] [facility] Date(s): 10/27/19 - 10/27/[address] [address]- [facility] Discharge Disposition: A-D/C Home Attending Physician: Nathalie Jones MD Admitting Physician: Nathalie Jones MD Referring Physician: Nathalie Jones MD Allergies, Adverse Reactions, Alerts Substance Reaction [...] Active Female bladder prolapse(Confirmed) Active Ex-cigarette smoker, 1/ ppd X10 years, quit(Confirmed) Active GERD (gastroesophageal reflu x disease)(Confirmed) Active Bladder prolapse, female, acquired(Confirmed) Active Right Cataract extraction status(Confirmed) 07/19/15 Active HLD (hyperlipidemia)(Confirmed) Active HTN (hypertension)(Confirmed) Active Vital Signs Most recent to oldest [Reference Range]: 1 Height 154.2 cm (10/27/19 6:55 AM) Weight 65.2 kg (10/27/19 6:55 AM) Oxygen Saturation [94-100 %] 98 % (10/27/19 6:55 AM) Pulse Rate [55-90 bpm] 66 bpm (10/27/19 6:55 AM) Body Mass Index [18.5-24.99] 27.42 *H* (10/27/19 6:55 AM) Blood Pressure [90-138/55-84 mm Hg] 230/ 88mm Hg *H* (10/27/19 6:55 AM) Respiratory Rate [16-30 br/min] 16 br/mi n (10/27/19 6:55 AM) Temperature [96.8-100.4 DegF] 98.4 DegF (10/27/19 6:55 AM) Mode of Delivery (Oxygen) Room air (10/27/19 6:55 AM) Blood pressure sites Arm, left (10/27/19 6:55 AM) Temperature Route Temporal (10/27/19 6:55 AM) Dry Weight 65.2 kg (10/27/19 6:55 AM) Weight Obtained Via Standing scale (10/27/19 6:55 AM) Dry Weight Obtained Via Standing scale (10/27/19 6:55 AM) Social History Social History Type Response Smoking Status Former smoker; Tobac co user in household: No entered on: 10/20/15 Sex
[2023-01-16] MEDS: 0.9 % Sodium Chloride 1,000 ML 999 ML IV (09:29)
[2023-01-16 09:32] LABS: MANUAL DIFF FLAG NO
[2023-01-16 09:33] LABS: Basophils Percent Auto 0.2 % (0-2); Hematocrit 30.5 % (37.0-47.0); Hemoglobin 9.6 g/dl (12.0-16.0); Imm Gran Abs Auto 0.05 X10*3/uL (0.00-0.03); Imm Gran Pct Auto 0.4 % (0.0-0.4); Lymphocytes Absolute Auto 0.4 X10*3/uL (1.2-4.9); Lymphocytes Percent Auto 3.5 % (20-40); Mean Corpuscular HGB Conc 31.5 g/dl (31.0-35.0); Mean Corpuscular Hemoglobin 28.9 pg (27.0-33.0); Mean Corpuscular Volume 91.9 fL (80.0-98.0); Mean Platelet Volume 9.1 fL (9.4-12.3); Monocytes Absolute Auto 0.8 X10*3/uL (0.1-1.2); Monocytes Percent Auto 6.8 % (2-11); Neutrophils Absolute Auto 10.8 x10*3/uL (2.0-8.3); Neutrophils Percent Auto 89.1 % (45-73); Platelet Count 254 X10*3/uL (160-400); Red Blood Count 3.32 X10*6/uL (4.20-5.50); Red Cell Distribution Width 14.3 % (11.0-16.0); White Blood Count 12.1 X10*3/uL (4.8-10.8)
[2023-01-16] MEDS: dilTIAZem HCL 50 MG/10 ML VIAL 20 MG IVPUSH (09:33)
--- NOTE | 2023-01-16 09:55 | PC.NURSE ---
pt cleaned of incontinent urine. pt daughter very involved with care pt receives, requiring significant verbal reassurance. pt remains collared, hr remains >90bpm on monitor. awaiting ct scan results. iv fluids infusing.
[2023-01-16 10:00] VITALS: PULSE 88; RESP 22; O2SAT 96
[2023-01-16 11:26] LABS: Anion Gap 11 (12-20); Blood Urea Nitrogen 19 mg/dL (9-16); Calcium 8.4 mg/dL (8.4-10.2); Carbon Dioxide 23 mmol/L (22-29); Chloride 112 mmol/L (96-108); Creatinine Clr Calc Pharmacy 42.5; Estimated Glomerular Filt Rate > 60; Glucose Random 132 mg/dL (60-115); Sodium 142 mmol/L (135-145)
[2023-01-16] MEDS: Acetaminophen Supp 650 MG SUPP.RECT PR ×2 (11:30→20:23)
--- NOTE | 2023-01-16 12:20 | MHC.EDTECH ---
i pct went in and attmepted to draw labs on pt, the pts daughter was againtst everything i tried to do inorder to care for this pt, i left the room and returned later to take vitals the daughter once again refusing us to do any care stating the she doesnt want her mother going through anymore pain RN aware
--- NOTE | 2023-01-16 12:24 | PC.NURSE ---
pt family requesting pt not have blood pressure measured, sts due to being to painful for pt.
[2023-01-16 14:13] LABS: COVID-19 Test Negative (Negative); IDNOW Serial# 16C4AD1C
--- NOTE | 2023-01-16 14:50 | MHC.CM.ED ---
Received case management consult from Dr Garcia. Patient came to ER due to a fall. Per Dr Garcia, family is interested in hospice referral for patient. Referral to [facility] made for informational meeting at bedside. Continue to monitor for d/c needs.
--- NOTE | 2023-01-16 15:12 | PC.NURSE ---
pt eyes closed and appears to be lethargic and confused. pt failed po trial. when prompted to take sip of water, pt could not tolerate. was not able to take po medcations. Dr. Garcia aware. pitting edema to bilateral lower extremities. significant pitting edema to left lower extremity after attempting bp to left lower leg. no bp to left upper arm due to humerous fracture. no bp to right upper arm due to hx of cancer. tolerated bp to left forearm.
[2023-01-16] MEDS: Lidocaine HCl 1%/Epi 1:100,000 10 ML VIAL 20 ML INFILTRATI (15:22)
[2023-01-16] MEDS: Metoprolol Tartrate 5 MG/5 ML VIAL IVPUSH (16:20)
[2023-01-16] MEDS: 0.9 % Sodium Chloride 1,000 ML 200 ML IVCONT (16:26)
[2023-01-16 16:46] VITALS: TEMP 37.9
--- NOTE | 2023-01-16 16:52 | MHC.EDTECH ---
this pct went into pts room and attempted too clean up pt, i asked the pts daughter to kindly step out of the room due to the constant refusal of doing care on her mother all day, pts daughter was very rude and kept declining any type of care that me and another tech kept trying all day so i removed myself from the situation and reported it pilar the nurse
[2023-01-16] MEDS: Ketorolac Tromethamine 15 MG/ML VIAL IVPUSH (17:15)
--- NOTE | 2023-01-16 18:05 | MHC.CM.ED ---
Addendum entered by Katherine Kirkpatrick 01/16/23 18:06: Hospice [facility] RADAR OPERATOR/NAVIGATOR met with patient and family for informational meeting at bedside. Family not yet ready to make a decision regarding hospice at this time. PT pending. CM following for discharge planning. Original Note: Attempted to meet with family. Off unit for dinner. Will meet with them when they return.
[2023-01-16 20:00] VITALS: BP 169/81; PULSE 132; RESP 19; TEMP 37.9; O2SAT 97
[2023-01-16] MEDS: Haloperidol Lactate 5 MG/ML VIAL 2.5 MG IM (20:24)
--- NOTE | 2023-01-16 20:40 | PC.NURSE ---
Report given to nurse in overflow. Patient is stable and ready to be transported via stretcher.
--- NOTE | 2023-01-16 21:17 | MHC.CM.ED ---
CM met with family, daughter/HCP Gaby ([phone] and son/HCP/POA Rui to discuss discharge planning. Family had already met with hospice intake CONCEPT ARTIST. Pt is mumbling and speech in unintelligable to CM. Gaby tells CM that she and her mother have discussed at length over the past year about her final wishes. Recent updated MOLST obtained and unloaded into [facility] and [facility]. Pt is full DNR/DNI. Gaby tells CM that both the patient and family will accept hospice. Acceptance uploaded with [facility]. Pt lives at the [facility] and aGby feels she cannot return to the [facility], as she needs more assistance than is allowed there. Mother has had multiple falls there. Family requests referrals to local facilities for hospice, with [facility] as first choice. Family aware that they will be responsible for room and board at facility and Hospice would cover medical. Family is aware that beds are tight and CM may not be able to find a local facility that offers a bed. Family will not accept bed if not local. CM will call [facility] in the morning to assess if they have a bed. Daughter states if there is no local bed, she will take her mother home with hospice. Daughter tells CM the family has funds to pay for help at home, however much is needed and have family help. Daughter states she has already looked into home care. Daughter aware that care between family and private pay must cover patient 07/04. Daughter does not want PT consulted in the morning, as she states her mother does not want PT. States her mother was no longer ambulating much at the [facility] and staff was using the transfer w/c. D/C plan: No PT. Family accepts [facility] hospice. Updated in [facility]. Local referrals place for hospice at facility, with [facility] as first choice. If no local offers, then home with family and private pay care. Will call [facility]. Provider and RN aware. [facility] Family agreeable. CM contact card given. Will speak with family in the morning with any bed offers.
[2023-01-16 23:53] VITALS: BP 151/101; PULSE 78; RESP 18; TEMP 37.1; O2SAT 98
[2023-01-17] VITALS (11 sets, daily range): BP systolic 116–199; BP diastolic 83–122; PULSE 75–142; RESP 18–20; TEMP 36.2–37.2; O2SAT 93–98
[2023-01-17] MEDS: Metoprolol Tartrate 5 MG/5 ML VIAL IVPUSH ×3 (06:37→17:45)
--- NOTE | 2023-01-17 09:39 | PHA.MEDREC ---
Pharmacy Consult ? Medication Reconciliation Pharmacy has completed the medication reconciliation. Patient's face is badly bruised with a swollen throat, chose not to speak to patient due to these injuries. Spoke to patients son (Pat) about patients medications, he had a list that was not fully up to date. Used a combination of sons list and pharmacy claims.
--- NOTE | 2023-01-17 10:46 | MHC.CM.ED ---
Patient remains in ER overflow. [facility] does not have an appropriate bed available for patient. T/W spoke with [facility]. They currently do not have a bed available and have a waiting list. [facility] and [facility] are able to offer a bed. Received notification from [facility] that they would be able to accept patient at her [facility] at [facility] if 24/7 care would be provided. T/W spoke with Gaby via telephone at [phone]. Explained bed at [facility] and [facility] are not available. Also explained bed offers. Patient was at [facility] in the past. Gaby doesn't want her to go there. Gaby doesn't know anything about [facility] but does not want patient to go there due to the location of the facility. Gaby will speak to her brother about options. She is hopeful the family don be able to get patient back to her [facility] with 24/7 care. Gaby will contact after this is discussed. Continue to monitor for d/c needs.
--- NOTE | 2023-01-17 11:42 | PC.NURSE ---
speech eval ordered for patient as pocketing her food this morning refusing all PO intake including any liquids.
--- NOTE | 2023-01-17 15:00 | PC.NURSE ---
Assumed care of patient at this time.
--- NOTE | 2023-01-17 15:06 | PC.NURSE ---
Speech at bedside.
--- NOTE | 2023-01-17 15:17 | PC.NURSE ---
Speech consulted with patient- patient did not pass swallow eval at this time. Esther Neal paged and aware to switch all PO meds to IV at this time.
--- NOTE | 2023-01-17 15:54 | MHC.SL.SWA ---
Speech Pathologist Impression: Oral Phase Dysphagia Dysphasia Diet Status: Downgrade Liquid Consistency and Strategies for Safe Swallow: Liquid Intake Recommendation: Water w/ swab only Solid Food Consistency: Dietary Recommendations: NPO Oral Medication Intake: NPO Please contact the pharmacy regarding appropriate crushable or liquid drug formulations that are available whenever modified delivery is recommended. Compensatory Strategies and Precautions to be Taken for Safe Swallow: Sitting Upright (90 deg) Supervision While Eating and Drinking for Safe Swallow: PO with MEDIA MANAGER Swallowing Recommended Treatments: Compens. Strategy Educat. Recommendation for Speech: Further Testing Needed Outpatient Speech Therapy Inpatient Speech Therapy Comment: Severely restricted ROM and strength of tongue. Pocketing observed w/ pureed solids. Pt not able to sip water via teaspoon or straw. Recommend NPO at this time with water via swab allowed for pt's pleasure/hydration/comfort. Frequency/Duration: M-F during hospitalization Rectangular Tank Cooper Clinican/Clinical Fellow: No Supervisory Statement: I have reviewed and agree with the student/clinical fellow's documentation: N/A Speech Language Pathologist: Meredith Reagan M.A., MEDIA MANAGER
--- NOTE | 2023-01-17 17:53 | PHA.MEDREC ---
Pharmacy Consult ? Medication Reconciliation Pharmacy has completed the medication reconciliation. Med rec amended per nurse in overflow. Family of patient came in and gave more updated med list to her so she forwarded information to us.
--- NOTE | 2023-01-17 19:26 | MHC.CM.ED ---
Addendum entered by Katherine Kirkpatrick 01/17/23 21:59: HCP has been invoked. Gaby Randy HCP #1 and Rui Randy HCP#2 Addendum entered by Katherine Kirkpatrick 01/17/23 21:44: [facility] will reach out to family. Contact information given for Gaby acosta. Addendum entered by Katherine Kirkpatrick 01/17/23 21:31: Per HCP/daughterGaby. Pt will be hospice referral. Daughter had already spoken with [facility]. Is denying [facility]. I believe patient has only had the informational meeting with [facility], not the intake. Daughter thinks it's the intake. Requesting paperwork from [facility] to be faxed to [facility]. Request made via [facility]. Per Gaby, Frandy will not be able to take on her mother until Friday or Friday. Expect patient will be here over weekend. Plan is to return to [facility] with family and photoengraving helper once hospice is arranged. Addendum entered by Katherine Kirkpatrick 01/17/23 19:36: Dr. Garcia met with both Gaby and Rui, with CM in attendance. Discussed end of life decisions, comfort care, feeding options since patient cannot swallow. Discussed pt MOLST and that their mother has made her wishes known, that they know their mother and their role is to speak for their mother. Stressed that he would like a decision about care moving forward tonight, within the next 2 hours or so, so patient can be treated accordingly. Family acknowledge understanding. Will go out to dinner and either call or return to [facility] to discuss decisions. CM will cancel [facility] as hospice agency per karla Griffin. Original Note: CM met with both daughter, Gaby, and son Rui. Discussed at length plan of care moving forward. Gaby (HCP #1) tells CM that she does not want [facility] hospice, and has already spoken with [facility]. She has also spoken with [facility] for home care at the [facility]. Gaby is expressing concerns about speech recommendation for PPN/TPN feedings. CM suggested they consider palliative care as an option if they still want treatment, but also reminded them that their mother did complete a MOLST with her wishes. Gaby stated you have already gone against her MOLST with the IV . Gaby is understandably upset with the situation. Rui is concerned that we are starving his mother . CM spoke with family about dying process, comfort care and hospice. Suggested they speak with the provider for clarification, as she may need to be admitted to the hospital if she needs parenteral feedings. Above situation discussed with Dr. Garcia. He is willing to meet with the family. CM spoke with Alia Jonas regarding about. Alia suggested CM speak with provider about pt competency and Invoking the HCP. Also suggested that the provider speak directly with the family to discuss options. Siblings left to discuss matter privately. They have CM contact information.
--- NOTE | 2023-01-17 20:00 | PC.NURSE ---
Patient a/ox1, mumbles, according to daughter had speech difficulties previously. Patient eyes swollen, black and blue, with some yellow drainage, Dr. Garcia to order ointment. Patient bottom noted to have a old open area that has been scabbed over, large foam applied to coccyx with barrier cream to prevent further skin breakdown and ICU wedges under her, turn/reposition q2 hours. Lotion applied to dry skin on torso and upper extremities. Old large scabs and bruising noted to bilateral lower extremities. Bilateral heels noted to be boggy, ICU blue booties in place to offset pressure. Compression boots in place. On aspiration precautions, NPO, HOB 30 degrees. Oral care provided, lip moisturizer applied. Patient has pure wick in place for incontinence. Patient resting and comfortable at this time
[2023-01-18] MEDS: Metoprolol Tartrate 5 MG/5 ML VIAL IVPUSH ×4 (00:01→18:27)
[2023-01-18 00:20] VITALS: BP 184/82; PULSE 148; RESP 15; TEMP 36.9; O2SAT 97
[2023-01-18 05:44] VITALS: BP 167/87; PULSE 115; RESP 17; TEMP 36.9; O2SAT 96
--- NOTE | 2023-01-18 06:49 | PC.NURSE ---
Patient A&Ox4, VSS, resting comfortably. No complaints of pain at present.
[2023-01-18 09:04] VITALS: BP 202/90; PULSE 97; RESP 16; TEMP 36.8; O2SAT 95
--- NOTE | 2023-01-18 09:29 | PC.NURSE ---
family at the bedside. patient repositioned for comfort. no signs of distress noted. will CTM
--- NOTE | 2023-01-18 10:18 | MHC.CM.PN ---
CECILIA RECEIVED A CALL FROM MICHELLE AT [facility] SHE REPORTS SHE IS UNABLE TO SEE THE REFERRAL THAT WAS SENT YESTERDAY EVENING SHE IS AWARE PTS DAUGHTER STATED SHE ALREADY SPOKE TO SOMEONE AT THE AGENCY, BUT SAYS SHE NEEDS TO REVIEW THE CLINICAL PTS CLINICAL INFORMATION WAS FAXED TO MICHELLE AT [phone] SHE IS AWARE PT IS NOT BEING ADMITTED AND IS READY TO DC ONCE SERVICES ARE IN PLACE PER CM NOTES, PT WILL DC BACK TO HER DETENTION WITH [facility] AND [facility]
--- NOTE | 2023-01-18 15:44 | PC.NURSE ---
hinojosa in place. patient denies pain at this time. family at the bedside
--- NOTE | 2023-01-18 16:58 | MHC.CM.PN ---
[facility] called this am requested clinical information for a referral that was masked. Clinical info sent via [facility]. [facility] can not start services until Friday. The patients dtr wanted her Mother to discharge back to the [facility] today. Spoke with the nurse on duty, Lilli. She had multiple concerns about patient care without Hospice in place. She stated that she would call her [facility] and [employer] to advise. A return call informed this fiction and nonfiction writer prose that [facility] management decided pt could not return safely without Hospice in place. CM went to ER to inform Pts daughter and son/HCP. The son was informed that the patient would be able to transfer back to [facility] as soon as Hospice can start services. He stated that he would inform his sister, Gaby who was getting something to eat at the time of the conversation. DP to [facility] via BLS Friday01/20/23 [address] [facility] in [address]..
--- NOTE | 2023-01-18 19:00 | PC.NURSE ---
Report received from RNSamantha about pts present condition, the reason for pt coming to the ED and what the care plan was in the ED. Pt is resting in bed, denies any CP, SOB, N/V/D or feeling of faint.
[2023-01-18 21:59] VITALS: BP 163/96; PULSE 136; RESP 22; TEMP 36.6; O2SAT 96
[2023-01-19] MEDS: Metoprolol Tartrate 5 MG/5 ML VIAL IVPUSH ×4 (00:30→18:37)
[2023-01-19 06:11] VITALS: BP 197/116; PULSE 112; RESP 18; TEMP 36.6; O2SAT 94
--- NOTE | 2023-01-19 06:27 | MHC.EDTECH ---
Addendum entered by Coral Saavedra 01/19/23 06:28: emptied 250 mL from urine hinojosa catheter Original Note: emptied 250 mL from the urine caltherer.
[2023-01-19] MEDS: Ketorolac Tromethamine 15 MG/ML VIAL IVPUSH (10:20)
[2023-01-19] MEDS: Acetaminophen Supp 650 MG SUPP.RECT PR ×2 (12:40→19:43)
[2023-01-19 13:09] VITALS: BP 140/72; PULSE 112; RESP 12; TEMP 36.3; O2SAT 96
--- NOTE | 2023-01-19 13:48 | PC.NURSE ---
Pt not attempting to eat or drink anything when offered. Cleaned, changed and positioned
--- NOTE | 2023-01-19 14:42 | PC.NURSE ---
Pt given ipad to listen to music, and a warm glove tohold her hand.
[2023-01-19 18:00] VITALS: BP 193/115; PULSE 103; RESP 20; TEMP 36.7; O2SAT 96
[2023-01-19 22:00] VITALS: BP 182/105; PULSE 102; RESP 18; TEMP 36.6; O2SAT 95
[2023-01-20] MEDS: Metoprolol Tartrate 5 MG/5 ML VIAL IVPUSH ×2 (00:07→06:01)
[2023-01-20 06:00] VITALS: BP 176/84; PULSE 80; RESP 20; TEMP 36.9; O2SAT 92
[2023-01-20 08:34] VITALS: BP 176/104; PULSE 125; RESP 14; TEMP 37; O2SAT 94
--- NOTE | 2023-01-20 09:28 | PC.NURSE ---
pt is sleeping resp even and unlabored. daughter and niece at bedside and is aware of plan of care. pt is to return to the [facility] on hospice.
--- NOTE | 2023-01-20 09:45 | PC.NURSE ---
Patients axillary temperature taken. Pt is febrile with a temperature of 100.4
[2023-01-20] MEDS: Acetaminophen Supp 650 MG SUPP.RECT PR (10:29)
[2023-01-20 10:30] VITALS: RESP 16
--- NOTE | 2023-01-20 10:57 | MHC.CM.ED ---
Patient remains in ER overflow. T/W spoke with Kandace at [facility]. They are requesting patient leave [facility] at 11am. Tali CRUZS booked. [facility] with chart. Patient, daughter Gaby, Wendi RN and Dinorah PEREZ aware. Gaby came over to main ER to speak with Dinorah PEREZ. Gaby is worried about patient's breathing. Dinorah PEREZ aware and assessed patient. Dinorah feels patient needs some NM Tylenol and then can transport home via BLS with hospice. Continue to monitor for d/c needs.
--- NOTE | 2023-01-20 11:13 | PC.NURSE ---
rn to rn report given to slywia at the [facility] ([facility]). pt d/c'd to the [facility] via [facility]. family aware.
== END 2023-01-20 11:14 | disposition skilled nursing facility (03) ==
PROVIDERS: Emergency Provider Emergency Medicine; PCP Internal Medicine
DX: S09.90XA Unspecified injury of head, initial encounter (principal); S01.81XA Laceration without foreign body of other part of head, initial encounter; W06.XXXA Fall from bed, initial encounter; Y93.84 Activity, sleeping; Y92.092 Bedroom in other non-institutional residence as the place of occurrence of the external cause; Y99.9 Unspecified external cause status; Z20.822 Contact with and (suspected) exposure to COVID-19
CPT/HCPCS: 12015; 36415; 70450; 70486; 72125; 80048; 82550; 85025; 87635; 93005; 96361; 96372; 96374; 96375; 96376; 99285; J1885